=== PATIENT | male | born 1990 | race Caucasian/White ===

== ENCOUNTER 2017-07-07 14:14 | Emergency (ER) | payer OTHER ==
[2017-07-07 14:22] VITALS: BP 113/73; PULSE 98; RESP 20; TEMP 98.1
--- NOTE | 2017-07-07 14:23 | ED ---
Psych HPI - General Stated Complaint: congestion Time Seen by Provider: 07/07/17 14:18 Source: patient, RN notes reviewed Mode of arrival: ambulatory Limitations: no limitations - History of Present Illness Initial Comments: 26-year-old male presents emergency Department chief complaint URI symptoms for 3 days. 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 Patient states he is a daily smoker. He has noticed some wheezing and shortness of breath. Patient has a fever or chills. States he has a productive cough and some nasal congestion. He's tried [id number] Mucinex DayQuil and tried some old antibiotics that he had with no relief. Patient states he does have sore throat which is improved at this time. Denies any ear pain pressure. There is a headache or dizziness. - Related Data Home Medications Medication Instructions Recorded Confirmed Cyclobenzaprine [Flexeril] 10 mg PO TID PRN 11/17/15 07/08/16 Dicyclomine [Bentyl] 20 mg PO QID PRN 11/17/15 07/08/16 Ergocalciferol (Vitamin D2) 50,000 unit PO Q30D 07/08/16 07/08/16 [Drisdol] Omeprazole 20 mg PO DAILY 07/08/16 07/08/16 Zolpidem [Ambien] 5 mg PO HS 07/08/16 07/08/16 Previous Rx's Medication Instructions Recorded Hydrocodone/Acetaminophen [[place] 1 tab PO Q6HR PRN #20 tab 07/08/16 5-325] Sulfamethox-Tmp 800-160Mg [Bactrim 2 each PO Q12HR #40 tab 07/08/16 Ds] Albuterol Sulfate [Proair Hfa] 1 - 2 puff INHALATION Q4HR PRN #1 07/07/17 inhaler methylPREDNISolone [Medrol Dose 4 mg PO DIRECTED #1 pack 07/07/17 Pack] Allergies Allergy/AdvReac Type Severity Reaction Status Date / Time No Known Allergies Allergy Verified 07/07/17 14:22 Review of Systems ROS Statement: Those systems with pertinent positive or pertinent negative responses have been documented in the HPI. ROS Other: All systems not noted in ROS Statement are negative. Past Medical History Past Medical History: No Reported History Additional Past Medical History / Comment(s): Back pain History of Any Multi-Drug Resistant Organisms: None Reported Past Surgical History: No Surgical Hx Reported Past Psychological History: No Psychological Hx Reported Smoking Status: Former smoker Past Alcohol Use History: Occasional Past Drug Use History: Marijuana General Exam General appearance: alert, in no apparent distress Head exam: Present: atraumatic, normocephalic, normal inspection Eye exam: Present: normal appearance, PERRL, EOMI. Absent: scleral icterus, conjunctival injection, periorbital swelling ENT exam: Present: mucous membranes moist, TM's normal bilaterally, normal external ear exam. Absent: normal oropharynx (Mild postnasal drainage) Neck exam: Present: normal inspection, full ROM. Absent: tenderness, meningismus, lymphadenopathy Respiratory exam: Present: wheezes (Bilateral). Absent: normal lung sounds bilaterally, respiratory distress, rales, rhonchi, stridor Cardiovascular Exam: Present: regular rate, normal rhythm, normal heart sounds. Absent: systolic murmur, diastolic murmur, rubs, gallop, clicks GI/Abdominal exam: Present: soft, normal bowel sounds. Absent: distended, tenderness, guarding, rebound, rigid Neurological exam: Present: alert Skin exam: Present: warm, dry, intact, normal color. Absent: rash Course Vital Signs 07/07/17 14:19 Temperature 98.1 F Pulse Rate 98 Respiratory 20 Rate Blood Pressure 113/73 O2 Sat by Pulse 97 Oximetry Medical Decision Making - Medical Decision Making 26-year-old male presented for URI symptoms. Patient does have slight wheezing most likely related to his tobacco use. Patient may have some underlying acute bronchitis. Patient was started on Medrol Dosepak, inhaler. Patient will be discharged advised to quit smoking counseled in detail greater than 3 minutes. Disposition Clinical Impression: Upper respiratory infection, Acute bronchitis Disposition: HOME SELF-CARE Condition: Stable Instructions: Upper Respiratory Infection (ED) Additional Instructions: Please return to the Emergency Department if symptoms worsen or any other concerns. Prescriptions: Albuterol Sulfate [Proair Hfa] 1 - 2 puff INHALATION Q4HR PRN #1 inhaler PRN Reason: difficulty in breathing methylPREDNISolone [Medrol Dose Pack] 4 mg PO DIRECTED #1 pack Referrals: Lane Campos MD [Primary Care Provider] - 1-2 days Time of Disposition: 14:49
--- NOTE | 2017-07-07 14:46 | XR ---
EXAMINATION TYPE: XR chest 2V DATE OF EXAM: 07/07/2017 COMPARISON: Prior chest x-ray 12/31/2014 HISTORY: Cough TECHNIQUE: Frontal and lateral views of the chest are obtained. FINDINGS: There is no focal air space opacity, pleural effusion, or pneumothorax seen. The cardiac silhouette size is within normal limits. The osseous structures are intact. IMPRESSION: No acute cardiopulmonary process.
== END 2017-07-07 14:58 | disposition home or self-care (01) ==
LOC: EC 14:14
DX: J06.9 Acute upper respiratory infection, unspecified (principal); J20.9 Acute bronchitis, unspecified; Z87.891 Personal history of nicotine dependence; Z79.899 Other long term (current) drug therapy
CPT/HCPCS: 71020; 99283

== ENCOUNTER 2017-10-30 07:26 | Emergency (ER) | payer OTHER ==
[2017-10-30 07:29] VITALS: BP 121/76; PULSE 77; RESP 20; TEMP 98.2
--- NOTE | 2017-10-30 08:22 | ED ---
General Adult HPI - General Chief complaint: Extremity Problem,Nontraumatic Stated complaint: Shoulder pain Time Seen by Provider: 10/30/17 07:42 Source: patient, RN notes reviewed, old records reviewed Mode of arrival: ambulatory Limitations: no limitations - History of Present Illness Initial comments: This is a 27-year-old male the ER for evaluation of left shoulder pain. Patient has no prior medical history takes no medications. Patient has no injuries. Patient states he said generalized body aches and symptoms of the flu GI flu with episode nausea and diarrhea as of recent is shoulder pain is persistent. Again patient denies any injury has full range of motion. Denies any recent fevers. No cough or congestion. Again patient denies any trauma - Related Data Home Medications Medication Instructions Recorded Confirmed Cyclobenzaprine [Flexeril] 10 mg PO TID PRN 11/17/15 07/08/16 Dicyclomine [Bentyl] 20 mg PO QID PRN 11/17/15 07/08/16 Ergocalciferol (Vitamin D2) 50,000 unit PO Q30D 07/08/16 07/08/16 [Drisdol] Omeprazole 20 mg PO DAILY 07/08/16 07/08/16 Zolpidem [Ambien] 5 mg PO HS 07/08/16 07/08/16 Previous Rx's Medication Instructions Recorded Hydrocodone/Acetaminophen [[place] 1 tab PO Q6HR PRN #20 tab 07/08/16 5-325] Sulfamethox-Tmp 800-160Mg [Bactrim 2 each PO Q12HR #40 tab 07/08/16 Ds] Albuterol Sulfate [Proair Hfa] 1 - 2 puff INHALATION Q4HR PRN #1 07/07/17 inhaler methylPREDNISolone [Medrol Dose 4 mg PO DIRECTED #1 pack 07/07/17 Pack] Allergies Allergy/AdvReac Type Severity Reaction Status Date / Time No Known Allergies Allergy Verified 10/30/17 07:30 Review of Systems ROS Statement: Those systems with pertinent positive or pertinent negative responses have been documented in the HPI. ROS Other: All systems not noted in ROS Statement are negative. Past Medical History Past Medical History: No Reported History Additional Past Medical History / Comment(s): Back pain History of Any Multi-Drug Resistant Organisms: None Reported Past Surgical History: No Surgical Hx Reported Past Psychological History: No Psychological Hx Reported Smoking Status: Former smoker Past Alcohol Use History: Occasional Past Drug Use History: Marijuana General Exam - General Exam Comments Initial Comments: Mild tenderness posterior scapula Limitations: no limitations General appearance: alert, in no apparent distress Head exam: Present: atraumatic, normocephalic, normal inspection Eye exam: Present: normal appearance, PERRL, EOMI. Absent: scleral icterus, conjunctival injection, periorbital swelling ENT exam: Present: normal exam, mucous membranes moist Neck exam: Present: normal inspection. Absent: tenderness, meningismus, lymphadenopathy Respiratory exam: Present: normal lung sounds bilaterally. Absent: respiratory distress, wheezes, rales, rhonchi, stridor Cardiovascular Exam: Present: regular rate, normal rhythm, normal heart sounds. Absent: systolic murmur, diastolic murmur, rubs, gallop, clicks GI/Abdominal exam: Present: soft, normal bowel sounds. Absent: distended, tenderness, guarding, rebound, rigid Extremities exam: Present: normal inspection, full ROM, normal capillary refill. Absent: tenderness, pedal edema, joint swelling, calf tenderness Back exam: Present: normal inspection Neurological exam: Present: alert, oriented X3, CN II-XII intact Psychiatric exam: Present: normal affect, normal mood Skin exam: Present: warm, dry, intact, normal color. Absent: rash Course Vital Signs 10/30/17 07:28 Temperature 98.2 F Pulse Rate 77 Respiratory 20 Rate Blood Pressure 121/76 O2 Sat by Pulse 98 Oximetry Medical Decision Making - Medical Decision Making 27 female ER for evaluation of left shoulder pain, will be placed on anti- inflammatories, encouraged rest, x-rays negative - Radiology Data Radiology results: report reviewed (Chest x-ray x-ray left shoulder negative for acute disease), image reviewed Disposition Clinical Impression: Left shoulder strain Disposition: HOME SELF-CARE Condition: Good Instructions: Shoulder Sprain (ED) Referrals: Lane Campos MD [Primary Care Provider] - 1-2 days
--- NOTE | 2017-10-30 08:26 | XR ---
EXAMINATION TYPE: XR shoulder complete LT DATE OF EXAM: 10/30/2017 COMPARISON: NONE HISTORY: Pain TECHNIQUE: 3 views FINDINGS: I see no fracture nor dislocation. Joint spaces are normal. There are no pathologic calcifi cations. IMPRESSION: Negative left shoulder exam
--- NOTE | 2017-10-30 08:27 | XR ---
EXAMINATION TYPE: XR chest 1V DATE OF EXAM: 10/30/2017 COMPARISON: 07/07/2017 HISTORY: Pain TECHNIQUE: Single frontal view of the chest is obtained. FINDINGS: Heart and mediastinum are normal. Lungs are clear. Diaphragm is normal. Bony thorax appear s normal. IMPRESSION: Normal chest. No change.
== END 2017-10-30 08:35 | disposition home or self-care (01) ==
LOC: EC 07:26
DX: S46.912A Strain of unspecified muscle, fascia and tendon at shoulder and upper arm level, left arm, initial encounter (principal); R11.0 Nausea; R19.7 Diarrhea, unspecified; Z87.891 Personal history of nicotine dependence; Z79.899 Other long term (current) drug therapy
CPT/HCPCS: 71010; 99284

== ENCOUNTER 2018-03-27 12:38 | Emergency (ER) | payer OTHER ==
--- NOTE | 2018-03-27 13:28 | XR ---
EXAMINATION TYPE: XR ankle complete RT DATE OF EXAM: 03/27/2018 COMPARISON: NONE HISTORY: Pain TECHNIQUE: Three-view right ankle FINDINGS: No acute fractures are evident. Joint spaces preserved. Ankle mortise is intact. Soft tissu es are unremarkable. Calcaneus appears normal. Follow-up study can be performed 7-10 days from acute trauma for continued pain. IMPRESSION: 1. Normal three-view right ankle.
--- NOTE | 2018-03-27 13:55 | ED ---
General Adult HPI - General Chief complaint: Extremity Injury, Lower Stated complaint: Ankle Pain Time Seen by Provider: 03/27/18 12:59 Source: patient, RN notes reviewed Mode of arrival: wheelchair Limitations: no limitations - History of Present Illness Initial comments: 27-year-old male presents to the emergency determine for a chief complaint of right ankle pain 2 days. Patient states that yesterday he jumped off his porch onto grass when playing with his children and injured his right ankle. Patient states he believes he landed on it wrong. Patient denies pain in the rest of the foot. Patient denies pain in the knee or hip. Patient did not fall or hit his head. Patient has no other complaints at this time including shortness of breath, chest pain, abdominal pain, nausea or vomiting, headache, or visual changes. - Related Data Home Medications Medication Instructions Recorded Confirmed Cyclobenzaprine [Flexeril] 10 mg PO TID PRN 11/17/15 03/27/18 Dicyclomine [Bentyl] 20 mg PO QID PRN 11/17/15 03/27/18 Ergocalciferol (Vitamin D2) 50,000 unit PO Q30D 07/08/16 03/27/18 [Drisdol] Omeprazole 20 mg PO DAILY 07/08/16 03/27/18 Zolpidem [Ambien] 5 mg PO HS 07/08/16 03/27/18 Previous Rx's Medication Instructions Recorded Hydrocodone/Acetaminophen [[place] 1 tab PO Q6HR PRN #20 tab 07/08/16 5-325] Sulfamethox-Tmp 800-160Mg [Bactrim 2 each PO Q12HR #40 tab 07/08/16 Ds] Albuterol Sulfate [Proair Hfa] 1 - 2 puff INHALATION Q4HR PRN #1 07/07/17 inhaler methylPREDNISolone [Medrol Dose 4 mg PO DIRECTED #1 pack 07/07/17 Pack] Ibuprofen [Motrin] 600 mg PO Q8HR PRN #60 tab 10/30/17 Ibuprofen [Motrin] 600 mg PO Q8HR PRN #20 tab 03/27/18 Allergies Allergy/AdvReac Type Severity Reaction Status Date / Time No Known Allergies Allergy Verified 03/27/18 12:46 Review of Systems ROS Statement: Those systems with pertinent positive or pertinent negative responses have been documented in the HPI. ROS Other: All systems not noted in ROS Statement are negative. Past Medical History Past Medical History: No Reported History Additional Past Medical History / Comment(s): Back pain History of Any Multi-Drug Resistant Organisms: None Reported Past Surgical History: No Surgical Hx Reported Past Psychological History: No Psychological Hx Reported Smoking Status: Current every day smoker Past Alcohol Use History: Occasional Past Drug Use History: Marijuana General Exam Limitations: no limitations General appearance: alert, in no apparent distress Head exam: Present: atraumatic, normocephalic, normal inspection Eye exam: Present: normal appearance, PERRL, EOMI. Absent: scleral icterus, conjunctival injection, periorbital swelling Neck exam: Present: normal inspection. Absent: tenderness, meningismus, lymphadenopathy Respiratory exam: Present: normal lung sounds bilaterally Cardiovascular Exam: Present: regular rate, normal rhythm, normal heart sounds. Absent: systolic murmur, diastolic murmur, rubs, gallop, clicks Extremities exam: Present: tenderness (Tenderness to the anterior aspect of the right ankle. No tenderness on the medial or lateral malleoli. No tenderness in the foot including the fifth metatarsal and navicular. No tenderness in the tib-fib or knee.), normal capillary refill (Refill less than 2 seconds and pedal pulse 2+.), joint swelling (There is mild right ankle swelling. No ecchymosis noted. No increased warmth.), other (Sensation intact in the right lower extremity.). Absent: full ROM (Patient has some limited flexion and extension of the right ankle joint.), calf tenderness (No tenderness in the calf. No redness, swelling, or increased warmth in the right calf.) Back exam: Present: normal inspection, full ROM. Absent: tenderness Course Vital Signs 03/27/18 03/27/18 12:44 14:11 Temperature 97.8 F 97.9 F Pulse Rate 116 H 98 Respiratory 18 16 Rate Blood Pressure 129/71 132/70 O2 Sat by Pulse 97 98 Oximetry Medical Decision Making - Medical Decision Making 27-year-old male presents to the emergency department for a chief complaint of right ankle pain 2 days. Patient jumped off the porch onto a grassy surface with his children and injured his right ankle. Patient states he landed on it wrong. On exam there is mild swelling. No ecchymosis. Patient has some limited range of motion but is able to flex and extend the right ankle. Neurovascular intact. Tenderness to the anterior ankle. No tenderness to the medial or lateral malleoli or the rest of the foot or right leg. X-ray of the right ankle shows no acute fractures or dislocations. Joint spaces are preserved and ankle mortise is intact. Calcaneus appears normal. Patient likely has a sprain of the ankle. Patient is given an Aircast. Patient will rest, ice, and elevate the right ankle. He will take Motrin and Tylenol for pain. He was given a prescription for Motrin. He will return to the emergency department if he has any worsening symptoms. Otherwise he will follow-up with primary care in 1-2 days. Disposition Clinical Impression: Ankle pain Disposition: HOME SELF-CARE Condition: Good Instructions: Ankle Sprain (ED), RICE Therapy (ED) Additional Instructions: Please take Motrin and Tylenol for pain. Please use brace as necessary. Use crutches as necessary as well. Follow-up with primary care provider in one to 2 days. Return to the emergency department if you've any worsening symptoms. Prescriptions: Ibuprofen [Motrin] 600 mg PO Q8HR PRN #20 tab PRN Reason: Pain Is patient prescribed a controlled substance at d/c from ED?: No Referrals: Lane Campos MD [Primary Care Provider] - 1-2 days Time of Disposition: 13:53
[2018-03-27 14:12] VITALS: BP 132/70; PULSE 98; RESP 16; TEMP 97.9
== END 2018-03-27 14:11 | disposition home or self-care (01) ==
LOC: EC 12:38
DX: M25.571 Pain in right ankle and joints of right foot (principal); F17.200 Nicotine dependence, unspecified, uncomplicated; Z79.899 Other long term (current) drug therapy
CPT/HCPCS: 99283

== ENCOUNTER 2018-04-13 13:39 | Emergency (ER) | payer OTHER ==
[2018-04-13 13:53] VITALS: RESP 18; TEMP 98.5
--- NOTE | 2018-04-13 14:50 | ED ---
Skin/Abscess/FB HPI - General Chief complaint: Skin/Abscess/Foreign Body Stated complaint: cyst on tailbone Source: patient Mode of arrival: ambulatory Limitations: no limitations - History of Present Illness Initial comments: Chief complaint: 27-year-old male with past medical history of GERD and pilonidal cyst/abscess presents with gluteal cleft pain 4 days. History of present illness: A 27-year-old male with past medical history of GERD presents with gluteal cleft pain 4 days. Patient has had pilonidal cyst/abscess approximately 1 year ago. He was scheduled for an outpatient appointment with a surgeon however lost his insurance. Over the past for this patient has had worsening gluteal cleft pain. She tried taking some of his ciprofloxacin at home without any improvement of his symptoms. He consumers department given the progressive worsening of his pain symptoms. Patient denies any constitutional symptoms. Past Medical History: Pilonidal cyst/abscess, GERD Surgical History: [Reviewed, noncontributory] Social History: [Reviewed, noncontributory] Family history:[Reviewed, noncontributory] 14 point ROS was reviewed with patient and found to be negative Vital signs on arrival: Vital signs upon arrival shows heart rate of 134, respiratory signs within acceptable limits Physical examination: General: Alert and oriented 4, acute distress secondary to pain HEENT: Normocephalic atraumatic, extraocular muscles intact, pupils equal round reactive to light and accommodation Cardiovascular: Heart is regular rate and rhythm, no murmurs rubs or gallops Chest: Lungs clear to auscultation bilaterally, no tenderness to palpation of the chest wall Abdomen: Nontender, nondistended, normoactive bowel sounds Musculoskeletal: No peripheral edema, DP pulses and radial pulses 2+ bilaterally Neurologic: Cranial nerves II-12 intact, no focal neurologic deficits, no ataxia Skin: 2 x 2 centimeters area of induration over the gluteal cleft, positive fluctuant mass palpated. ED course/medical decision-making: This 27-year-old male past medical history pilonidal cyst/abscess presents with gluteal cleft pain. Clinical presentation consistent with pilonidal cyst. Vital signs upon arrival shows tachycardia 134. Plan of care bedside ultrasound was performed showing large fluid collection subcutaneously. Bedside I&D was performed. There was expression of approximately 6 mL of purulent fluid. Wound was bluntly dissected and packed using 1 inch plain gauze. He tolerated the procedure well after infiltration with IV analgesics using 1% lidocaine. Approximately 5 mL of lidocaine was injected for analgesia. 15 blade was used to incise the subcutaneous surface to allow packing. Patient is given prescription for Bactrim double strength and Keflex. He is advised to follow up with general surgeon in 2 days for reevaluation of wound. Repeat vital signs shows improvement of tachycardia. Patient is understandable and agreeable to plan. Carloser return to emergency Department with any worsening symptoms including worsening pain and constitutional symptoms of fever, chills or night sweats. Patient understands that he needs surgery intervention to prevent any further recurrences. At time of discharge patient's pain was controlled. Final impression: 1. Pilonidal abscess Plan: Discharge with instructions to follow up with general surgeon for outpatient management of pilonidal abscess, by mouth Keflex, by mouth Bactrim double strength Disposition: Discharged to home - Related Data Home Medications Medication Instructions Recorded Confirmed Dicyclomine [Bentyl] 20 mg PO QID PRN 11/17/15 04/13/18 Ergocalciferol (Vitamin D2) 50,000 unit PO Q30D 07/08/16 04/13/18 [Drisdol] Omeprazole 20 mg PO HS 07/08/16 04/13/18 Cipro Unknown Dose 1 tab PO Q12H 04/13/18 04/13/18 Ibuprofen [Motrin] 600 - 800 mg PO Q8HR PRN 04/13/18 04/13/18 Allergies Allergy/AdvReac Type Severity Reaction Status Date / Time No Known Allergies Allergy Verified 04/13/18 14:10 Review of Systems ROS Statement: Those systems with pertinent positive or pertinent negative responses have been documented in the HPI. ROS Other: All systems not noted in ROS Statement are negative. Past Medical History Past Medical History: No Reported History Additional Past Medical History / Comment(s): Back pain History of Any Multi-Drug Resistant Organisms: None Reported Past Surgical History: No Surgical Hx Reported Past Psychological History: No Psychological Hx Reported Smoking Status: Current every day smoker Past Alcohol Use History: Occasional Past Drug Use History: Marijuana General Exam - General Exam Comments Initial Comments: Vital signs on arrival: Vital signs upon arrival shows heart rate of 134, respiratory signs within acceptable limits Physical examination: General: Alert and oriented 4, acute distress secondary to pain HEENT: Normocephalic atraumatic, extraocular muscles intact, pupils equal round reactive to light and accommodation Cardiovascular: Heart is regular rate and rhythm, no murmurs rubs or gallops Chest: Lungs clear to auscultation bilaterally, no tenderness to palpation of the chest wall Abdomen: Nontender, nondistended, normoactive bowel sounds Musculoskeletal: No peripheral edema, DP pulses and radial pulses 2+ bilaterally Neurologic: Cranial nerves II-12 intact, no focal neurologic deficits, no ataxia Skin: 2 x 2 centimeters area of induration over the gluteal cleft, positive fluctuant mass palpated. Limitations: no limitations Course Vital Signs 04/13/18 04/13/18 13:50 14:58 Temperature 98.5 F Pulse Rate 134 H 97 Respiratory 18 18 Rate Blood Pressure 113/83 119/68 O2 Sat by Pulse 97 100 Oximetry Medical Decision Making - Medical Decision Making ED course/medical decision-making: This 27-year-old male past medical history pilonidal cyst/abscess presents with gluteal cleft pain. Clinical presentation consistent with pilonidal cyst. Vital signs upon arrival shows tachycardia 134. Plan of care bedside ultrasound was performed showing large fluid collection subcutaneously. Bedside I&D was performed. There was expression of approximately 6 mL of purulent fluid. Wound was bluntly dissected and packed using 1 inch plain gauze. He tolerated the procedure well after infiltration with IV analgesics using 1% lidocaine. Approximately 5 mL of lidocaine was injected for analgesia. 15 blade was used to incise the subcutaneous surface to allow packing. Patient is given prescription for Bactrim double strength and Keflex. He is advised to follow up with general surgeon in 2 days for reevaluation of wound. Repeat vital signs shows improvement of tachycardia. Patient is understandable and agreeable to plan. Carloser return to emergency Department with any worsening symptoms including worsening pain and constitutional symptoms of fever, chills or night sweats. Patient understands that he needs surgery intervention to prevent any further recurrences. At time of discharge patient's pain was controlled. Final impression: 1. Pilonidal abscess Plan: Discharge with instructions to follow up with general surgeon for outpatient management of pilonidal abscess, by mouth Keflex, by mouth Bactrim double strength Disposition: Discharged to home Disposition Clinical Impression: Pilonidal abscess Disposition: HOME SELF-CARE Condition: Stable Is patient prescribed a controlled substance at d/c from ED?: No Referrals: Loli Love DO [Doctor of Osteopathic Medicine] - 1-2 days Time of Disposition: 15:05
[2018-04-13 14:59] VITALS: BP 119/68; PULSE 97
--- NOTE | 2018-04-13 15:19 | ED ---
Disposition Clinical Impression: Pilonidal abscess Disposition: HOME SELF-CARE Condition: Stable Prescriptions: Cephalexin [Keflex] 500 mg PO Q6HR 7 Days #28 cap Ibuprofen [Motrin] 600 mg PO Q6HR PRN #24 tab PRN Reason: Pain Sulfamethox-Tmp 800-160Mg [Bactrim DS 800-160 mg] 1 tab PO Q12HR 7 Days #14 tab Is patient prescribed a controlled substance at d/c from ED?: No Referrals: Loli Love DO [Doctor of Osteopathic Medicine] - 1-2 days
== END 2018-04-13 15:43 | disposition home or self-care (01) ==
LOC: EC 13:39
DX: L05.01 Pilonidal cyst with abscess (principal); K21.9 Gastro-esophageal reflux disease without esophagitis; F17.200 Nicotine dependence, unspecified, uncomplicated; Z79.899 Other long term (current) drug therapy
CPT/HCPCS: 10081; 99283

== ENCOUNTER 2018-07-27 00:07 | Emergency (ER) | payer OTHER ==
[2018-07-27] MEDS ORDERED: ACET/COD 300 MG/30 MG STARTER PACK 6 TAB BTL PO STA (00:55)
[2018-07-27] MEDS ORDERED: KETOROLAC 30 MG/ML 1 ML VIAL IM STA (00:55)
[2018-07-27] MEDS ORDERED: ORPHENADRINE 30 MG/ML 2 ML VIAL IM STA (00:55)
[2018-07-27] MEDS ORDERED: methylPREDNISolone SOD SUCCI 125 MG/2 ML VIAL IM ONE (00:55)
--- NOTE | 2018-07-27 00:55 | ED ---
Back Pain HPI - General Source: patient Limitations: no limitations <Anna Novak - Last Filed: 07/27/18 00:57> <Isabel Banks - Last Filed: 07/27/18 07:06> - General Chief Complaint: Back Pain/Injury Stated Complaint: back pain Time Seen by Provider: 07/27/18 00:25 - History of Present Illness Initial Comments: 27-year-old male patient presents to the emergency department today for complaints of increased low back pain with radiation down the left leg. Patient states approximately 15 minutes prior to arrival he was bending down to moss picker some papers off the floor when he felt his "sciatic nerve" pinched. Patient states that he has had pain since then. Patient states that the pain radiates down the back of his left leg to the level of the knee. Patient denies any numbness or tingling to his lower extremities. Denies any loss of bowel or bladder control. Denies any saddle anesthesia. Patient denies taking any medications for his symptoms. Patient states that he does have ibuprofen and Flexeril at home. Patient states he has had sciatica before and this feels exactly the same. Patient denies any recent rash, fever, chills, shortness breath, chest pain, abdominal pain, nausea, vomiting, diarrhea, constipation, dizziness, weakness, hematuria, dysuria, urinary urgency, urinary frequency, headache, visual changes, or any other complaints. (Anna Novak) - Related Data Home Medications Medication Instructions Recorded Confirmed Dicyclomine [Bentyl] 20 mg PO QID PRN 11/17/15 07/27/18 Omeprazole 20 mg PO HS 07/08/16 07/27/18 Cyclobenzaprine [Flexeril] 10 mg PO HS 07/27/18 07/27/18 Previous Rx's Medication Instructions Recorded Ibuprofen [Motrin] 600 mg PO Q6HR PRN #24 tab 04/13/18 predniSONE 50 mg PO DAILY #5 tablet 07/27/18 Allergies Allergy/AdvReac Type Severity Reaction Status Date / Time No Known Allergies Allergy Verified 04/13/18 14:10 Review of Systems ROS Other: All systems not noted in ROS Statement are negative. <Anna Novak - Last Filed: 07/27/18 00:57> ROS Other: All systems not noted in ROS Statement are negative. <Isabel Banks P - Last Filed: 07/27/18 07:06> ROS Statement: Those systems with pertinent positive or pertinent negative responses have been documented in the HPI. Past Medical History Past Medical History: No Reported History Additional Past Medical History / Comment(s): Back pain History of Any Multi-Drug Resistant Organisms: None Reported Past Surgical History: No Surgical Hx Reported Past Psychological History: Anxiety Smoking Status: Current every day smoker Past Alcohol Use History: None Reported Past Drug Use History: None Reported, Marijuana <Anna Novak M - Last Filed: 07/27/18 00:57> General Exam Limitations: no limitations General appearance: alert, in no apparent distress, other (This is a well- developed, well-nourished adult male patient in no acute distress. Vital signs upon presentation are temperature 98.2F, pulse 85, respirations 18, blood pressure 127/82, pulse ox 97% on room air.) Eye exam: Present: normal appearance, PERRL, EOMI. Absent: scleral icterus, conjunctival injection, periorbital swelling ENT exam: Present: normal exam, normal oropharynx, mucous membranes moist Respiratory exam: Present: normal lung sounds bilaterally. Absent: respiratory distress, wheezes, rales, rhonchi, stridor Cardiovascular Exam: Present: regular rate, normal rhythm, normal heart sounds. Absent: systolic murmur, diastolic murmur, rubs, gallop, clicks GI/Abdominal exam: Present: soft, normal bowel sounds. Absent: distended, tenderness, guarding, rebound, rigid Extremities exam: Present: normal inspection, full ROM, normal capillary refill , other (Skin to the lower extremities is pink, warm, and dry. Cap refills less than 3 seconds. Pedal and posttibial pulses are 2+ and equal bilaterally.) . Absent: tenderness, pedal edema, joint swelling, calf tenderness Back exam: Present: normal inspection Neurological exam: Present: alert, oriented X3, CN II-XII intact, other ( Strength in all 4 extremities is 5/5.) Psychiatric exam: Present: normal affect, normal mood Skin exam: Present: warm, dry, intact, normal color. Absent: rash <Anna Novak M - Last Filed: 07/27/18 00:57> Vital Signs 07/27/18 07/27/18 00:09 01:22 Temperature 98.0 F 97.0 F L Pulse Rate 85 72 Respiratory 18 16 Rate Blood Pressure 127/82 123/74 O2 Sat by Pulse 97 97 Oximetry Medical Decision Making <Anna Novak - Last Filed: 07/27/18 00:57> <Isabel Banks - Last Filed: 07/27/18 07:06> - Medical Decision Making 27-year-old male patient presents to the emergency department today for evaluation of left lower back pain with radiation down the left leg. Symptoms and physical exam finds are consistent with sciatica. Patient will be treated with IM anti-inflammatory, muscle relaxer, and steroids. He'll be given a prescription for steroids and instructed to take his home ibuprofen and Flexeril for symptom relief. He is instructed to apply warm moist heat to the low back in to perform gentle range of motion exercises. He is instructed to follow-up with his primary care physician for recheck in 1-2 days. Return parameters were discussed in detail. He verbalizes understanding and agrees with this plan. (Anna Novak) I was available for consultation in the emergency department. The history and physical exam were done by the midlevel provider. I was consulted for this patient's care. I reviewed the case with the midlevel provider and based on their presentation of the patient, I agree with the assessment, medical decision making and plan of care as documented. (Isabel Banks) Disposition Is patient prescribed a controlled substance at d/c from ED?: No Time of Disposition: 00:55 <Anna Novak - Last Filed: 07/27/18 00:57> <Isabel Banks - Last Filed: 07/27/18 07:06> Clinical Impression: Sciatica Disposition: HOME SELF-CARE Condition: Good Instructions: Sciatica (ED), Acute Low Back Pain (ED) Additional Instructions: Apply warm moist heat to the low back 20 minutes at a time at least 4 times daily. Take medications as directed. Follow-up through primary care physician for recheck in 1-2 days. Return here immediately for any new, worsening, or concerning symptoms per Prescriptions: predniSONE 50 mg PO DAILY #5 tablet Referrals: Lane Campos MD [Primary Care Provider] - 1-2 days
[2018-07-27 01:27] VITALS: BP 123/74; PULSE 72; RESP 16; TEMP 97
== END 2018-07-27 01:22 | disposition home or self-care (01) ==
LOC: EC 00:07
DX: M54.42 Lumbago with sciatica, left side (principal); F17.200 Nicotine dependence, unspecified, uncomplicated; Z79.899 Other long term (current) drug therapy
CPT/HCPCS: 96372; 99283

== ENCOUNTER 2019-02-13 15:22 | Emergency (ER) | payer OTHER ==
[2019-02-13 15:25] VITALS: BP 127/85; PULSE 80; RESP 18; TEMP 98
[2019-02-13] MEDS ORDERED: KETOROLAC 60 MG/2 ML VIAL IM STA (15:31)
[2019-02-13] MEDS ORDERED: CYCLOBENZAPRINE 10MG STARTER 3 TAB BTL PO STA (15:31)
--- NOTE | 2019-02-13 15:33 | ED ---
Back Pain HPI - General Chief Complaint: Back Pain/Injury Stated Complaint: Back Pain Source: patient Limitations: no limitations - History of Present Illness Initial Comments: 28-year-old male presenting today for chief complaint of low back pain with left leg sciatica. Patient states he has chronic low back pain and has had on-and-off sciatica. Patient states he was stepping out of the shower when he lifted his left leg onto the edge of the tub and placed on the ground he noted pain in his back as well as a sharp shooting pain down his left leg. Patient states is identical to be sided sciatica in the past. He states it usually lasts for 4 days. Patient states his ibuprofen 600 mg at home did not take that prior to arrival. Patient states that he has no loss of bowel bladder control no urinary retention no loss sensation of the lower extremities or weakness of the lower extremities. Patient states pain increases with bending forward. Patient denies IV drug use history of cancer fever chills night sweats fall, or direct trauma to the back, no hematuria dysuria, frequency. Upon arrival patient is ambulatory appearing well milliseconds acute distress. - Related Data Home Medications Medication Instructions Recorded Confirmed Dicyclomine [Bentyl] 20 mg PO QID PRN 11/17/15 07/27/18 Omeprazole 20 mg PO HS 07/08/16 07/27/18 Cyclobenzaprine [Flexeril] 10 mg PO HS 07/27/18 07/27/18 Previous Rx's Medication Instructions Recorded Ibuprofen [Motrin] 600 mg PO Q6HR PRN #24 tab 04/13/18 predniSONE 50 mg PO DAILY #5 tablet 07/27/18 Cyclobenzaprine [Flexeril] 10 mg PO HS PRN 7 Days #7 tab 02/13/19 Ibuprofen 800 mg PO Q8H PRN 7 Days #21 tablet 02/13/19 Allergies Allergy/AdvReac Type Severity Reaction Status Date / Time No Known Allergies Allergy Verified 02/13/19 15:25 Review of Systems ROS Statement: Those systems with pertinent positive or pertinent negative responses have been documented in the HPI. ROS Other: All systems not noted in ROS Statement are negative. Past Medical History Past Medical History: No Reported History Additional Past Medical History / Comment(s): Back pain History of Any Multi-Drug Resistant Organisms: None Reported Past Surgical History: No Surgical Hx Reported Past Psychological History: Anxiety Smoking Status: Current every day smoker Past Alcohol Use History: None Reported Past Drug Use History: Marijuana General Exam - General Exam Comments Initial Comments: General: The patient is awake and alert, in no distress, and does not appear acutely ill. Eye: Pupils are equal, round and reactive to light, extra-ocular movements are intact. No nystagmus. There is normal conjunctiva bilaterally. No signs of icterus. Ears, nose, mouth and throat: There are moist mucous membranes and no oral lesions. Neck: The neck is supple, there is no tenderness or JVD. Cardiovascular: There is a regular rate and rhythm. No murmur, rub or gallop is appreciated. Respiratory: Lungs are clear to auscultation, respirations are non-labored, breath sounds are equal. No wheezes, stridor, rales, or rhonchi. Gastrointestinal: Soft, non-distended, non-tender abdomen without masses or organomegaly noted. There is no rebound or guarding present. Musculoskeletal: Upon inspection of the thoracic or lumbar spine there is no abnormalities or ecchymosis. Patient has no midline tenderness to palpation of the thoracic or lumbar spine. Patient has significant paravertebral tenderness bilaterally of the lumbar aspect of the spine. Normal ROM, no tenderness of the lower extremities equal and comparison bilaterally. Strength 5/5 of the LE equally comparison bilaterally. Sensation intact of the LE equally comparison bilaterally including the saddle region. Radial pulses equal bilaterally 2+. S LR + left side. Neurological: A&O x 3. CN II-XII intact, There are no obvious motor or sensory deficits. Coordination appears grossly intact. Speech is normal. Skin: Skin is warm and dry and no rashes or lesions are noted. Psychiatric: Cooperative, appropriate mood & affect, normal judgment. Limitations: no limitations Course Vital Signs 02/13/19 15:23 Temperature 98.0 F Pulse Rate 80 Respiratory 18 Rate Blood Pressure 127/85 O2 Sat by Pulse 98 Oximetry Medical Decision Making - Medical Decision Making 28-year-old male presenting today for chief complaint of left-sided low back pain. Patient lifted leg up earlier today and exacerbated his chronic sciatica. Patient has no midline tenderness on exam, paravertebral tenderness bilaterally as well as muscle tension. Patient was given muscle relaxer and Toradol emergency department. Patient be discharged muscle relaxant and ibuprofen 800 mg for symptom relief. Patient has no signs concerning for cauda equina. Patient neurovascularly intact. I discussed the case with him provider Dr. Lacey we feel patient is stable for discharge with outpatient primary care follow-up. Patient is provided work note. Pt was agreeable with plan of care as well as discharge denies questions at this time Disposition Clinical Impression: Low back strain, Acute exacerbation of chronic low back pain Disposition: HOME SELF-CARE Condition: Good Instructions (If sedation given, give patient instructions): Acute Low Back Pain (ED) Additional Instructions: Please use medication as discussed, no drinking alcohol, driving, working or operating machinery under the influence of Flexeril . Please follow-up with family doctor in the next 2 days of symptoms have not improved. Please return to emergency room if the symptoms increase or worsen or for any other concerns. Prescriptions: Cyclobenzaprine [Flexeril] 10 mg PO HS PRN 7 Days #7 tab PRN Reason: Muscle Spasm Ibuprofen 800 mg PO Q8H PRN 7 Days #21 tablet PRN Reason: Pain Is patient prescribed a controlled substance at d/c from ED?: No Referrals: Lane Campos MD [Primary Care Provider] - 1-2 days Time of Disposition: 15:32
== END 2019-02-13 15:53 | disposition home or self-care (01) ==
LOC: EC 15:22
DX: S39.012A Strain of muscle, fascia and tendon of lower back, initial encounter (principal); G89.29 Other chronic pain; F17.200 Nicotine dependence, unspecified, uncomplicated; Z79.899 Other long term (current) drug therapy; X58.XXXA Exposure to other specified factors, initial encounter
CPT/HCPCS: 99283; 96372; J1885

== ENCOUNTER 2019-04-16 13:42 | Emergency (ER) | payer OTHER ==
[2019-04-16 14:02] VITALS: BP 132/98; PULSE 92; RESP 18; TEMP 98.8
--- NOTE | 2019-04-16 14:12 | ED ---
URI HPI - General Stated Complaint: Cough Time Seen by Provider: 04/16/19 13:54 Source: patient, RN notes reviewed Mode of arrival: ambulatory Limitations: no limitations - History of Present Illness Initial Comments: 20-year-old male presents emergency Department chief complaint sore throat, congestion. Patient states he does not feel well. He is a former smoker. Patient had subjective fevers chills. No [id number] medications. Patient denies any sick contacts. Patient denies any chest pain, nausea vomiting diarrhea constipation. - Related Data Home Medications Medication Instructions Recorded Confirmed Dicyclomine [Bentyl] 20 mg PO QID PRN 11/17/15 07/27/18 Omeprazole 20 mg PO HS 07/08/16 07/27/18 Cyclobenzaprine [Flexeril] 10 mg PO HS 07/27/18 07/27/18 Previous Rx's Medication Instructions Recorded Ibuprofen [Motrin] 600 mg PO Q6HR PRN #24 tab 04/13/18 predniSONE 50 mg PO DAILY #5 tablet 07/27/18 Cyclobenzaprine [Flexeril] 10 mg PO HS PRN 7 Days #7 tab 02/13/19 Ibuprofen 800 mg PO Q8H PRN 7 Days #21 tablet 02/13/19 Azithromycin [Zithromax Z-pack] 0 mg PO DIRECTED #1 pack 04/16/19 predniSONE 50 mg PO DAILY #5 tab 04/16/19 Allergies Allergy/AdvReac Type Severity Reaction Status Date / Time No Known Allergies Allergy Verified 04/16/19 13:56 Review of Systems ROS Statement: Those systems with pertinent positive or pertinent negative responses have been documented in the HPI. ROS Other: All systems not noted in ROS Statement are negative. Past Medical History Past Medical History: No Reported History Additional Past Medical History / Comment(s): Back pain History of Any Multi-Drug Resistant Organisms: None Reported Past Surgical History: No Surgical Hx Reported Past Psychological History: Anxiety Smoking Status: Former smoker Past Alcohol Use History: None Reported Past Drug Use History: Marijuana General Exam Limitations: no limitations General appearance: alert, in no apparent distress Head exam: Present: atraumatic, normocephalic, normal inspection Eye exam: Present: normal appearance, PERRL, EOMI. Absent: scleral icterus, conjunctival injection, periorbital swelling ENT exam: Present: mucous membranes moist, TM's normal bilaterally, normal external ear exam. Absent: normal oropharynx (Erythema) Neck exam: Present: normal inspection, full ROM. Absent: tenderness, meningismus, lymphadenopathy Respiratory exam: Present: wheezes. Absent: normal lung sounds bilaterally, respiratory distress, rales, rhonchi, stridor Cardiovascular Exam: Present: regular rate, normal rhythm, normal heart sounds. Absent: systolic murmur, diastolic murmur, rubs, gallop, clicks Course Vital Signs 04/16/19 13:56 Temperature 98.8 F Pulse Rate 92 Respiratory 18 Rate Blood Pressure 132/98 O2 Sat by Pulse 98 Oximetry Medical Decision Making - Medical Decision Making 20-year-old male presented for URI symptoms. Patient's chest x-ray is unremarkable. Patient has acute bronchitis. Patient we discharged return parameters were discussed. Disposition Clinical Impression: Acute bronchitis Disposition: HOME SELF-CARE Condition: Stable Instructions (If sedation given, give patient instructions): Acute Bronchitis (ED) Additional Instructions: Please return to the Emergency Department if symptoms worsen or any other concerns. Prescriptions: predniSONE 50 mg PO DAILY #5 tab Azithromycin [Zithromax Z-pack] 0 mg PO DIRECTED #1 pack Is patient prescribed a controlled substance at d/c from ED?: No Referrals: Lane Campos MD [Primary Care Provider] - 1-2 days Time of Disposition: 14:12
--- NOTE | 2019-04-16 14:14 | XR ---
EXAMINATION TYPE: XR chest 2V DATE OF EXAM: 04/16/2019 COMPARISON: Chest x-ray October 30, 2017 HISTORY: Cough and pain. TECHNIQUE: Frontal and lateral views of the chest are obtained. FINDINGS: There is new patchy right hilar opacity felt to be in the right middle lobe on lateral vie w. Left lung is clear. No pleural effusion or pneumothorax is evident bilaterally. The cardiac silho uette size is within normal limits. The osseous structures are intact. IMPRESSION: New patchy right middle lobe atelectasis and/or infiltrate.
== END 2019-04-16 15:11 | disposition home or self-care (01) ==
LOC: EC 13:42
DX: J20.9 Acute bronchitis, unspecified (principal); Z79.899 Other long term (current) drug therapy; Z87.891 Personal history of nicotine dependence
CPT/HCPCS: 71046; 99283

== ENCOUNTER → 2019-05-05 | Outpatient (CLI) | payer BC, OTHER ==
--- NOTE | 2019-05-06 07:37 | MR ---
EXAMINATION TYPE: MR angio head wo con DATE OF EXAM: 05/05/2019 COMPARISON: NONE HISTORY: Headaches, family hx aneurysm TECHNIQUE: Utilizing 3-D [id number] intracranial MRA of the [place] of [place] was performed. FINDINGS: The vertebrobasilar and carotid systems are patent. Left vertebral artery is dominant. There is a 2 m m nodular area in the region of the anterior communicating artery. IMPRESSION: 1. There is a 2 mm nodular prominence in the region of the anterior communicating artery. Tiny aneury sm suspected. Recommend 6 month to 12 month follow-up to confirm stability.
== END | disposition home or self-care (01) ==
LOC: RADMRIMAIN 19:34
PROVIDERS: ATTEND Family Medicine
DX: I77.89 Other specified disorders of arteries and arterioles (principal); R51 Headache
CPT/HCPCS: 70544

== ENCOUNTER → 2019-05-09 | Outpatient (CLI) | payer OTHER ==
--- NOTE | 2019-05-09 09:41 | US ---
EXAMINATION TYPE: US liver DATE OF EXAM: 05/09/2019 COMPARISON: NONE CLINICAL HISTORY: R74.8 ABnormal LFTS. EXAM MEASUREMENTS: Liver Length: 12.6 cm Gallbladder Wall: 0.1 cm CBD: 0.3 cm Right Kidney: 10.7 x 3.5 x 5.2 cm Pancreas: Tail obscured by overlying bowel gas Liver: Increased attenuation, hypoechoic area measuring 2.3 x 0.8 x 2.0 possible focal fatty sparing Gallbladder: wnl Evidence for sonographic Horne's sign: No CBD: wnl Right Kidney: wnl IMPRESSION: Sonographic findings most commonly relates to hepatic steatosis. Relate with liver functi on test results. There is a geographic area of possible focal fatty sparing for which three-phase CT abdomen could confirm.
== END | disposition home or self-care (01) ==
LOC: RADUSWWP 08:51
PROVIDERS: ATTEND Family Medicine
DX: R74.8 Abnormal levels of other serum enzymes (principal)
CPT/HCPCS: 76705

== ENCOUNTER → 2019-06-16 | Outpatient (CLI) | payer BC, OTHER ==
--- NOTE | 2019-06-16 14:51 | US ---
EXAMINATION TYPE: US thyroid st tissue head/neck DATE OF EXAM: 06/16/2019 COMPARISON: NONE CLINICAL HISTORY: R22.0 SWELLING IN NECK ,SENSATION OF FOREIGN BODY IN NECK. Patient has a feeling of little nodules within area of thyroid GLAND SIZE: Right Lobe: 3.6 x 1.5 x 1.8 cm Overall Parenchyma: homogenous Left Lobe: 3.5 x 1.4 x 1.7 cm Overall Parenchyma: homogeneous Isthmus Thickness: 0.2 cm NODULES RIGHT: # of nodules measured on right: 0 LEFT: # of nodules measured on left: 0 ISTHMUS: # of nodules measured in the isthmus: 0 Bilateral neck scanned, no evidence of abnormal lymphadenopathy. IMPRESSION: Homogeneous thyroid gland without measurable nodule.
== END ==
LOC: RADUSWWP 13:37
PROVIDERS: ATTEND Family Medicine
DX: R09.89 Other specified symptoms and signs involving the circulatory and respiratory systems (principal)
CPT/HCPCS: 76536

== ENCOUNTER 2020-08-12 20:01 | Emergency (ER) | payer BC, OTHER ==
[2020-08-12 20:11] VITALS: BP 151/92; PULSE 77; RESP 18; TEMP 98.1
[2020-08-12] MEDS ORDERED: methylPREDNISolone SOD SUCCI 125 MG/2 ML VIAL IM ONE (20:25)
[2020-08-12] MEDS ORDERED: ORPHENADRINE 30 MG/ML 2 ML VIAL IM STA (20:25)
[2020-08-12] MEDS ORDERED: ACET/COD 300 MG/30 MG STARTER PACK 6 TAB BTL PO STA (20:25)
[2020-08-12] MEDS ORDERED: KETOROLAC 15 MG/ML 1 ML VIAL IM STA (20:25)
--- NOTE | 2020-08-12 20:29 | ED ---
Back Pain HPI - General Chief Complaint: Back Pain/Injury Stated Complaint: Back Pain Time Seen by Provider: 08/12/20 20:16 Source: patient, RN notes reviewed, old records reviewed Limitations: no limitations - History of Present Illness Initial Comments: Patient is a very pleasant 30-year-old male presents emergency department today with lower back pain shooting down the left leg. Symptoms started after he was lifting a dog. 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 Patient states that he has had x-rays which showed no fractures in the past. He states that he has not followed up with orthopedic back specialist. He reports he typically gets relief after IM injections in the ER. Patient states that he's had no chest pain shortness breath, nausea or vomiting or abdominal pain. Denies saddle anesthesias. - Related Data Home Medications Medication Instructions Recorded Confirmed Dicyclomine [Bentyl] 20 mg PO QID PRN 11/17/15 07/27/18 Omeprazole 20 mg PO HS 07/08/16 07/27/18 Cyclobenzaprine [Flexeril] 10 mg PO HS 07/27/18 07/27/18 Previous Rx's Medication Instructions Recorded Ibuprofen [Motrin] 600 mg PO Q6HR PRN #24 tab 04/13/18 predniSONE 50 mg PO DAILY #5 tablet 07/27/18 Cyclobenzaprine [Flexeril] 10 mg PO HS PRN 7 Days #7 tab 02/13/19 Ibuprofen 800 mg PO Q8H PRN 7 Days #21 tablet 02/13/19 Azithromycin [Zithromax Z-pack (6 0 mg PO DIRECTED #1 pack 04/16/19 tabs)] predniSONE 50 mg PO DAILY #5 tab 04/16/19 Cyclobenzaprine [Flexeril] 10 mg PO TID #12 tab 08/12/20 Ibuprofen [Motrin] 600 mg PO Q6HR PRN #20 tab 08/12/20 Allergies Allergy/AdvReac Type Severity Reaction Status Date / Time No Known Allergies Allergy Verified 08/12/20 20:11 Review of Systems ROS Statement: Those systems with pertinent positive or pertinent negative responses have been documented in the HPI. ROS Other: All systems not noted in ROS Statement are negative. Past Medical History Past Medical History: GERD/Reflux Additional Past Medical History / Comment(s): Back pain, IBS History of Any Multi-Drug Resistant Organisms: None Reported Past Surgical History: No Surgical Hx Reported Past Psychological History: Anxiety Smoking Status: Never smoker Past Alcohol Use History: Occasional Past Drug Use History: Marijuana General Exam - General Exam Comments Initial Comments: 30-year-old male. Alert and oriented. No distress. Limitations: no limitations General appearance: alert, in no apparent distress Head exam: Present: atraumatic, normocephalic, normal inspection Eye exam: Present: normal appearance, PERRL, EOMI. Absent: scleral icterus, conjunctival injection, periorbital swelling ENT exam: Present: normal exam, mucous membranes moist Neck exam: Present: normal inspection. Absent: tenderness, meningismus, lymphadenopathy Respiratory exam: Present: normal lung sounds bilaterally. Absent: respiratory distress, wheezes, rales, rhonchi, stridor Cardiovascular Exam: Present: regular rate, normal rhythm, normal heart sounds. Absent: systolic murmur, diastolic murmur, rubs, gallop, clicks GI/Abdominal exam: Present: soft, normal bowel sounds. Absent: distended, tenderness, guarding, rebound, rigid Extremities exam: Present: normal inspection, full ROM, normal capillary refill, other (Patient has lower back tenderness over the left sciatic notch). Absent: tenderness, pedal edema, joint swelling, calf tenderness Back exam: Present: normal inspection Neurological exam: Present: alert, oriented X3, CN II-XII intact Psychiatric exam: Present: normal affect, normal mood Skin exam: Present: warm, dry, intact, normal color. Absent: rash Course Vital Signs 08/12/20 20:07 Temperature 98.1 F Pulse Rate 77 Respiratory 18 Rate Blood Pressure 151/92 O2 Sat by Pulse 97 Oximetry Medical Decision Making - Medical Decision Making 30-year-old male presents with lower back pain after lifting a dog. No fall or trauma. Patient's pain shooting down the left leg. No saddle anesthesias. Patient is given IM pain medications as reports relief. Patient advised follow- up with orthopedic back specialist. He said imaging on his back in the past which showed no fractures. He states that he typically is improved after injections in the ER. Discussed the Patient follow-up with orthopedic back specialist if symptoms continue to persist such as this. Patient understands treatment plan will comply. Disposition Clinical Impression: Back pain of lumbar region with sciatica Disposition: HOME SELF-CARE Condition: Good Instructions (If sedation given, give patient instructions): Acute Low Back Pain (ED) Additional Instructions: Please use medication as discussed. Please follow up with family doctor if symptoms have not improved over the next two days. Please return to the emergency room if your symptoms increase or worsen or for any other concerns. Prescriptions: Cyclobenzaprine [Flexeril] 10 mg PO TID #12 tab Ibuprofen [Motrin] 600 mg PO Q6HR PRN #20 tab PRN Reason: Pain Is patient prescribed a controlled substance at d/c from ED?: No Referrals: Lane Campos MD [Primary Care Provider] - 1-2 days Cooper Luo DO [Doctor of Osteopathic Medicine] - 1-2 days Time of Disposition: 20:46
== END 2020-08-12 21:04 | disposition home or self-care (01) ==
LOC: EC 20:01
DX: M54.40 Lumbago with sciatica, unspecified side (principal); K21.9 Gastro-esophageal reflux disease without esophagitis; Z79.899 Other long term (current) drug therapy
CPT/HCPCS: 99283; 96372 ×3; J2360; J2930; J1885

== ENCOUNTER → 2020-09-23 | Outpatient (CLI) | payer OTHER ==
[2020-09-23 16:13] LABS: Basophils # (A) 0.1 k/uL (0-0.2); Basophils % (A) 2 %; Eosinophils # (A) 0.1 k/uL (0-0.7); Eosinophils % (A) 2 %; HCT 50.6 % (39.0-53.0); HGB 17.7 gm/dL (13.0-17.5); Lymphocytes # (A) 1.7 k/uL (1.0-4.8); Lymphocytes % (A) 27 %; MCH 33.8 pg (25.0-35.0); MCV 96.6 fL (80.0-100.0); Mean Platelet Volume 6.9; Monocytes # (A) 0.5 k/uL (0-1.0); Monocytes % (A) 8 %; Neutrophils # (A) 3.7 k/uL (1.3-7.7); Neutrophils % (A) 59 %; Platelet Count 202 k/uL (150-450); RBC 5.23 m/uL (4.30-5.90); RDW 12.4 % (11.5-15.5); WBC 6.3 k/uL (3.8-10.6)
[2020-09-23 16:38] LABS: INR 0.9 (<1.2); Prothrombin Time 9.8 sec (9.0-12.0)
[2020-09-23 23:32] LABS: Protein, Total 7.2 g/dL (6.2-8.2)
[2020-09-23 23:44] LABS: % Iron Saturation 46.22 (15.00-50.00); Albumin 4.7 g/dL (3.80-4.90); Albumin/Globulin Ratio 1.96 (1.60-3.17); Bilirubin, Conjugated 0.4 mg/dL (0.20-0.40); Bilirubin,Unconjugated 0.7 mg/dL; Globulin 2.4 g/dL (1.6-3.3); Total Bilirubin 1.1 mg/dL (0.2-1.2); Total Protein 7.1 g/dL (6.2-8.2)
[2020-09-24 00:06] LABS: Ferritin 2927.3 ng/mL (22.0-322.0)
[2020-09-24 02:22] LABS: Hepatitis A Antibody IgM Non-Reactive (Non-Reactive); Hepatitis B Core IgM Non-Reactive (Non-Reactive); Hepatitis B Surface Antigen Non-Reactive (Non-Reactive); Hepatitis C IgG Antibody Non-Reactive (Non-Reactive)
[2020-09-24 13:27] LABS: Ceruloplasmin 21.9 mg/dL (20.0-60.0)
== END | disposition home or self-care (01) ==
LOC: LABWHC1 15:01
PROVIDERS: ATTEND Nurse Practitioner
DX: R74.01 Elevation of levels of liver transaminase levels (principal)
CPT/HCPCS: 36415; 80074; 80076; 82390; 82728; 83516; 83540; 83550; 84165; 85025; 85610; 86038

== ENCOUNTER → 2020-10-01 | Outpatient (CLI) | payer OTHER | END | disposition home or self-care (01) | LOC: LABWHC1 14:03 | PROVIDERS: ATTEND Nurse Practitioner | DX: R74.01 Elevation of levels of liver transaminase levels (principal) | CPT/HCPCS: 36415 ==

== ENCOUNTER → 2020-10-02 | Outpatient (CLI) | payer OTHER ==
--- NOTE | 2020-10-02 11:58 | US ---
EXAMINATION TYPE: US liver DATE OF EXAM: 10/02/2020 COMPARISON: Previous exam 05/09/2019 CLINICAL HISTORY: R74.01 Elevated liver enzymes. elevated liver enzymes EXAM MEASUREMENTS: Liver Length: 13.5 cm Gallbladder Wall: 0.2 cm CBD: 0.5 cm Right Kidney: 11.3 x 4.6 x 4.2 cm Pancreas: Obscured by bowel gas Liver: attenuating Gallbladder: no evidence of stones Evidence for sonographic Horne's sign: no CBD: wnl Right Kidney: no evidence of hydronephrosis IMPRESSION: Findings in the liver could be due to underlying hepatocellular disease, hepatic steatosi s, limited exam
== END | disposition home or self-care (01) ==
LOC: RADUSWWP 08:24
PROVIDERS: ATTEND Nurse Practitioner
DX: R74.01 Elevation of levels of liver transaminase levels (principal)
CPT/HCPCS: 76705

== ENCOUNTER 2020-10-20 01:20 | Emergency (ER) | payer OTHER ==
[2020-10-20] MEDS ORDERED: SODIUM CHLORIDE 0.9% 1,000 ML IV ONE (01:24)
[2020-10-20] MEDS ORDERED: LORazepam 2 MG/ML INJ IV STA ×2 (01:24→03:05)
[2020-10-20] MEDS ORDERED: DIPH,PERTUS(ACELL)TETVAC-LF 0.5 ML VIAL IM ONE (01:39)
--- NOTE | 2020-10-20 01:39 | ED ---
Fall HPI - General Stated Complaint: Fall, altered mental status Time Seen by Provider: 10/20/20 01:23 Source: EMS Mode of arrival: EMS Limitations: altered mental status - History of Present Illness Initial Comments: Patient is a 30-year-old man brought in after he had a fall on the stairs. History is from EMS, patient has altered mental status and not able to give any additional history. EMS reports that they were called after the patient had fallen down approximately 6 stairs striking the back of his head. A arrived, they state that the patient was unconscious for 2-3 minutes. When he did become alert he was combative, taking off the cervical collar, attempting to swing at the first responders. The patient was given ketamine 300 mg IM injection at the scene and then brought here for evaluation. MD Complaint: fall -: minutes(s) Fall From: down stairs (#) (6) When Fall Occurred: just prior to arrival Fall Witnessed: yes, by family Place Fall Occurred: home Loss of Consciousness: yes, minute(s) (3) Prolonged Down Time?: no Symptoms Prior to Fall: none Location: head Context: alcohol use - Related Data Home Medications Medication Instructions Recorded Confirmed Dicyclomine [Bentyl] 20 mg PO QID PRN 11/17/15 07/27/18 Omeprazole 20 mg PO HS 07/08/16 07/27/18 Cyclobenzaprine [Flexeril] 10 mg PO HS 07/27/18 07/27/18 Previous Rx's Medication Instructions Recorded Ibuprofen [Motrin] 600 mg PO Q6HR PRN #24 tab 04/13/18 predniSONE 50 mg PO DAILY #5 tablet 07/27/18 Cyclobenzaprine [Flexeril] 10 mg PO HS PRN 7 Days #7 tab 02/13/19 Ibuprofen 800 mg PO Q8H PRN 7 Days #21 tablet 02/13/19 Azithromycin [Zithromax Z-pack (6 0 mg PO DIRECTED #1 pack 04/16/19 tabs)] predniSONE 50 mg PO DAILY #5 tab 04/16/19 Cyclobenzaprine [Flexeril] 10 mg PO TID #12 tab 08/12/20 Ibuprofen [Motrin] 600 mg PO Q6HR PRN #20 tab 08/12/20 Allergies Allergy/AdvReac Type Severity Reaction Status Date / Time No Known Allergies Allergy Verified 08/12/20 20:11 Review of Systems ROS Statement: Those systems with pertinent positive or pertinent negative responses have been documented in the HPI. ROS Other: All systems not noted in ROS Statement are negative. Limitations: ROS unobtainable due to patients medical condition (Altered mental status) Past Medical History Past Medical History: GERD/Reflux Additional Past Medical History / Comment(s): Back pain, IBS History of Any Multi-Drug Resistant Organisms: None Reported Past Surgical History: No Surgical Hx Reported Past Psychological History: Anxiety Smoking Status: Never smoker Past Alcohol Use History: Occasional Past Drug Use History: Marijuana General Exam General appearance: appears intoxicated Head exam: Present: atraumatic (Scalp contusion, occipital), normocephalic Eye exam: Present: PERRL. Absent: scleral icterus, conjunctival injection ENT exam: Present: normal oropharynx, TM's normal bilaterally, normal external ear exam Neck exam: Present: normal inspection. Absent: tenderness Respiratory exam: Present: rhonchi. Absent: respiratory distress, wheezes, rales, stridor, chest wall tenderness, accessory muscle use, decreased breath sounds, prolonged expiratory Cardiovascular Exam: Present: normal rhythm, tachycardia, normal heart sounds. Absent: systolic murmur, diastolic murmur, rubs, gallop GI/Abdominal exam: Present: soft. Absent: distended, tenderness, guarding, re bound, rigid, mass Extremities exam: Present: normal inspection, normal capillary refill. Absent: pedal edema, calf tenderness Back exam: Present: normal inspection Neurological exam: Present: altered, CN II-XII intact. Absent: motor sensory deficit Skin exam: Present: warm, dry, intact, normal color. Absent: rash Course Vital Signs 10/20/20 01:20 Temperature 98.4 F Pulse Rate 129 H Respiratory 20 Rate Blood Pressure 138/96 O2 Sat by Pulse 97 Oximetry Medical Decision Making - Medical Decision Making This patient is a 30-year-old man brought by and was to be evaluated after fall downstairs proximally 6 stairs. Computed tomography scan reveals what appears to be traumatic subarachnoid hemorrhage. Radiology did recommend CTA to rule out underlying aneurysm. The case is then discussed with [facility] for transfer and patient is accepted by Dr. Harris. Unable to perform reliable neurologic exam as patient had been given ketamine on scene per the EMS protocol. The patient mental status is altered. Patient does move all 4 extremities. No sensory deficit is apparent on the exam. Reflexes symmetric. GCS=11 (E=4, V=2, M=5). - Lab Data Result diagrams: 10/20/20 01:53 10/20/20 01:53 Lab Results 10/20/20 10/20/20 10/20/20 Range/Units 01:53 01:53 01:53 WBC 6.6 (3.8-10.6) k/uL RBC 5.06 (4.30-5.90) m/uL Hgb 17.3 (13.0-17.5) gm/dL Hct 48.7 (39.0-53.0) % MCV 96.2 (80.0-100.0) fL MCH 34.2 (25.0-35.0) pg MCHC 35.5 (31.0-37.0) g/dL RDW 12.7 (11.5-15.5) % Plt Count 168 (150-450) k/uL MPV 6.8 Neutrophils % 61 % Lymphocytes % 27 % Monocytes % 5 % Eosinophils % 2 % Basophils % 2 % Neutrophils # 4.0 (1.3-7.7) k/uL Lymphocytes # 1.8 (1.0-4.8) k/uL Monocytes # 0.3 (0-1.0) k/uL Eosinophils # 0.1 (0-0.7) k/uL Basophils # 0.1 (0-0.2) k/uL PT 10.0 (9.0-12.0) sec INR 1.0 (<1.2) APTT 22.3 (22.0-30.0) sec Sodium (137-145) mmol/L Potassium (3.5-5.1) mmol/L Chloride (98-107) mmol/L Carbon Dioxide (22-30) mmol/L Anion Gap mmol/L BUN (9-20) mg/dL Creatinine (0.66-1.25) mg/dL Est GFR (CKD-EPI)AfAm (>60 ml/min/1.73 sqM) Est GFR (CKD-EPI)NonAf (>60 ml/min/1.73 sqM) Glucose (74-99) mg/dL Lactic Ac Sepsis Rflx Plasma Lactic Acid Ender (0.7-2.0) mmol/L Calcium (8.4-10.2) mg/dL Total Bilirubin (0.2-1.3) mg/dL AST (17-59) U/L ALT (4-49) U/L Alkaline Phosphatase (38-126) U/L Troponin I (0.000-0.034) ng/mL Total Protein (6.3-8.2) g/dL Albumin (3.5-5.0) g/dL Urine Color Colorless Urine Appearance Clear (Clear) Urine pH 5.5 (5.0-8.0) Ur Specific [place] 1.006 (1.001-1.035) Urine Protein Trace H (Negative) Urine Glucose (UA) Negative (Negative) Urine Ketones Negative (Negative) Urine Blood Trace H (Negative) Urine Nitrite Negative (Negative) Urine Bilirubin Negative (Negative) Urine Urobilinogen <2.0 (<2.0) mg/dL Ur Leukocyte Esterase Negative (Negative) Urine WBC <1 (0-5) /hpf Ur Squamous Epith Cells <1 (0-4) /hpf Urine Opiates Screen Not Detected (NotDetected) Ur Oxycodone Screen Not Detected (NotDetected) Urine Methadone Screen Not Detected (NotDetected) Ur Propoxyphene Screen Not Detected (NotDetected) Ur Barbiturates Screen Not Detected (NotDetected) U Tricyclic Antidepress Not Detected (NotDetected) Ur Phencyclidine Scrn Not Detected (NotDetected) Ur Amphetamines Screen Not Detected (NotDetected) U Methamphetamines Scrn Not Detected (NotDetected) U Benzodiazepines Scrn Not Detected (NotDetected) Urine Cocaine Screen Not Detected (NotDetected) U Marijuana (THC) Screen Detected H (NotDetected) Serum Alcohol mg/dL Blood Type Blood Type Confirm Blood Type Recheck Bld Type Recheck Status Antibody Screen Spec Expiration Date 10/20/20 10/20/20 10/20/20 Range/Units 01:53 01:53 01:53 WBC (3.8-10.6) k/uL RBC (4.30-5.90) m/uL Hgb (13.0-17.5) gm/dL Hct (39.0-53.0) % MCV (80.0-100.0) fL MCH (25.0-35.0) pg MCHC (31.0-37.0) g/dL RDW (11.5-15.5) % Plt Count (150-450) k/uL MPV Neutrophils % % Lymphocytes % % Monocytes % % Eosinophils % % Basophils % % Neutrophils # (1.3-7.7) k/uL Lymphocytes # (1.0-4.8) k/uL Monocytes # (0-1.0) k/uL Eosinophils # (0-0.7) k/uL Basophils # (0-0.2) k/uL PT (9.0-12.0) sec INR (<1.2) APTT (22.0-30.0) sec Sodium 143 (137-145) mmol/L Potassium 4.3 (3.5-5.1) mmol/L Chloride 107 (98-107) mmol/L Carbon Dioxide 20 L (22-30) mmol/L Anion Gap 16 mmol/L BUN 8 L (9-20) mg/dL Creatinine 0.70 (0.66-1.25) mg/dL Est GFR (CKD-EPI)AfAm >90 (>60 ml/min/1.73 sqM) Est GFR (CKD-EPI)NonAf >90 (>60 ml/min/1.73 sqM) Glucose 123 H (74-99) mg/dL Lactic Ac Sepsis Rflx Plasma Lactic Acid Ender 2.3 H* (0.7-2.0) mmol/L Calcium 9.3 (8.4-10.2) mg/dL Total Bilirubin 1.0 (0.2-1.3) mg/dL AST 155 H (17-59) U/L ALT 328 H (4-49) U/L Alkaline Phosphatase 68 (38-126) U/L Troponin I <0.012 (0.000-0.034) ng/mL Total Protein 8.3 H (6.3-8.2) g/dL Albumin 4.9 (3.5-5.0) g/dL Urine Color Urine Appearance (Clear) Urine pH (5.0-8.0) Ur Specific [place] (1.001-1.035) Urine Protein (Negative) Urine Glucose (UA) (Negative) Urine Ketones (Negative) Urine Blood (Negative) Urine Nitrite (Negative) Urine Bilirubin (Negative) Urine Urobilinogen (<2.0) mg/dL Ur Leukocyte Esterase (Negative) Urine WBC (0-5) /hpf Ur Squamous Epith Cells (0-4) /hpf Urine Opiates Screen (NotDetected) Ur Oxycodone Screen (NotDetected) Urine Methadone Screen (NotDetected) Ur Propoxyphene Screen (NotDetected) Ur Barbiturates Screen (NotDetected) U Tricyclic Antidepress (NotDetected) Ur Phencyclidine Scrn (NotDetected) Ur Amphetamines Screen (NotDetected) U Methamphetamines Scrn (NotDetected) U Benzodiazepines Scrn (NotDetected) Urine Cocaine Screen (NotDetected) U Marijuana (THC) Screen (NotDetected) Serum Alcohol 272 H* mg/dL Blood Type Blood Type Confirm Blood Type Recheck Bld Type Recheck Status Antibody Screen Spec Expiration Date 10/20/20 10/20/20 10/20/20 Range/Units 01:53 02:00 02:26 WBC (3.8-10.6) k/uL RBC (4.30-5.90) m/uL Hgb (13.0-17.5) gm/dL Hct (39.0-53.0) % MCV (80.0-100.0) fL MCH (25.0-35.0) pg MCHC (31.0-37.0) g/dL RDW (11.5-15.5) % Plt Count (150-450) k/uL MPV Neutrophils % % Lymphocytes % % Monocytes % % Eosinophils % % Basophils % % Neutrophils # (1.3-7.7) k/uL Lymphocytes # (1.0-4.8) k/uL Monocytes # (0-1.0) k/uL Eosinophils # (0-0.7) k/uL Basophils # (0-0.2) k/uL PT (9.0-12.0) sec INR (<1.2) APTT (22.0-30.0) sec Sodium (137-145) mmol/L Potassium (3.5-5.1) mmol/L Chloride (98-107) mmol/L Carbon Dioxide (22-30) mmol/L Anion Gap mmol/L BUN (9-20) mg/dL Creatinine (0.66-1.25) mg/dL Est GFR (CKD-EPI)AfAm (>60 ml/min/1.73 sqM) Est GFR (CKD-EPI)NonAf (>60 ml/min/1.73 sqM) Glucose (74-99) mg/dL Lactic Ac Sepsis Rflx Y Plasma Lactic Acid Ender (0.7-2.0) mmol/L Calcium (8.4-10.2) mg/dL Total Bilirubin (0.2-1.3) mg/dL AST (17-59) U/L ALT (4-49) U/L Alkaline Phosphatase (38-126) U/L Troponin I (0.000-0.034) ng/mL Total Protein (6.3-8.2) g/dL Albumin (3.5-5.0) g/dL Urine Color Urine Appearance (Clear) Urine pH (5.0-8.0) Ur Specific [place] (1.001-1.035) Urine Protein (Negative) Urine Glucose (UA) (Negative) Urine Ketones (Negative) Urine Blood (Negative) Urine Nitrite (Negative) Urine Bilirubin (Negative) Urine Urobilinogen (<2.0) mg/dL Ur Leukocyte Esterase (Negative) Urine WBC (0-5) /hpf Ur Squamous Epith Cells (0-4) /hpf Urine Opiates Screen (NotDetected) Ur Oxycodone Screen (NotDetected) Urine Methadone Screen (NotDetected) Ur Propoxyphene Screen (NotDetected) Ur Barbiturates Screen (NotDetected) U Tricyclic Antidepress (NotDetected) Ur Phencyclidine Scrn (NotDetected) Ur Amphetamines Screen (NotDetected) U Methamphetamines Scrn (NotDetected) U Benzodiazepines Scrn (NotDetected) Urine Cocaine Screen (NotDetected) U Marijuana (THC) Screen (NotDetected) Serum Alcohol mg/dL Blood Type O Positive Blood Type Confirm O Positive Blood Type Recheck No Previous Record Bld Type Recheck Status CABO Indicated Antibody Screen NEGATIVE Spec Expiration Date 10/23/2020 - 7330 - EKG Data -: EKG Interpreted by Ia EKG shows normal: sinus rhythm, axis (Normal), intervals (Normal), QRS complexes (Normal), ST-T waves (Normal) Rate: tachycardia (Rate 114 BPM) Critical Care Time Critical Care Time: Yes (35 minutes) Disposition Clinical Impression: Traumatic subarachnoid hemorrhage, Alcohol intoxication Disposition: OTHER INSTITUTION NOT DEFINED Condition: Serious Is patient prescribed a controlled substance at d/c from ED?: No Referrals: None,Stated [Primary Care Provider] - 1-2 days - Out of Hospital Transfer - Req. Specs Out of Hospital Transfer - Requested Specifics: Other Emergency Center
--- NOTE | 2020-10-20 01:49 | XR ---
EXAM: XR Pelvis, 1 or 2 Views CLINICAL HISTORY: ITS.REASON XR Reason: Trauma TECHNIQUE: Frontal view of the pelvis. COMPARISON: None. FINDINGS: Bones/joints: Unremarkable. No acute fracture. No dislocation. Soft tissues: Unremarkable. IMPRESSION: No acute osseous abnormality. If there is persistent concern for fracture, recommend evaluation with CT.
--- NOTE | 2020-10-20 01:50 | XR ---
EXAM: XR Chest, 1 View CLINICAL HISTORY: ITS.REASON XR Reason: trauma TECHNIQUE: Frontal view of the chest. COMPARISON: None. FINDINGS: Lungs: Hypoinflated lungs with bibasilar opacities likely representing atelectasis. Pleural space: Unremarkable. No pneumothorax. Heart: Unremarkable. No cardiomegaly. Mediastinum: Unremarkable. Bones/joints: Unremarkable. IMPRESSION: Hypoinflated lungs with bibasilar opacities likely representing atelectasis. Aspiration and pneumonia are not entirely excluded.
[2020-10-20 02:01] VITALS: BP 138/96; PULSE 129; RESP 20; TEMP 98.4
[2020-10-20 02:02] LABS: Basophils # (A) 0.1 k/uL (0-0.2); Basophils % (A) 2 %; Eosinophils # (A) 0.1 k/uL (0-0.7); Eosinophils % (A) 2 %; HCT 48.7 % (39.0-53.0); HGB 17.3 gm/dL (13.0-17.5); Lymphocytes # (A) 1.8 k/uL (1.0-4.8); Lymphocytes % (A) 27 %; MCH 34.2 pg (25.0-35.0); MCHC 35.5 g/dL (31.0-37.0); MCV 96.2 fL (80.0-100.0); Mean Platelet Volume 6.8; Monocytes # (A) 0.3 k/uL (0-1.0); Monocytes % (A) 5 %; Neutrophils % (A) 61 %; Platelet Count 168 k/uL (150-450); RBC 5.06 m/uL (4.30-5.90); RDW 12.7 % (11.5-15.5); WBC 6.6 k/uL (3.8-10.6)
--- NOTE | 2020-10-20 02:03 | CT ---
EXAM: CT Head Without Intravenous Contrast CLINICAL HISTORY: ITS.REASON CT Reason: trauma TECHNIQUE: Axial computed tomography images of the head/brain without intravenous contrast. CTDI is 31.335 mGy and DLP is 735.15 mGy-cm. This CT exam was performed using one or more of the following dose reduction techniques: automated exposure control, adjustment of the mA and/or kV according to patient size, and/or use of iterative reconstruction technique. COMPARISON: None. FINDINGS: Brain: Subarachnoid blood along the suprasellar cistern, right sylvian fissure, and bilateral rectus gyri. No discrete intraventricular hemorrhage. No significant white matter disease. Ventricles: No discrete intraventricular hemorrhage. No ventriculomegaly. Bones/joints: Unremarkable. No acute fracture. Soft tissues: Small left parietal scalp contusion. Sinuses: Unremarkable as visualized. No acute sinusitis. Mastoid air cells: Unremarkable as visualized. No mastoid effusion. IMPRESSION: 1. Subarachnoid hemorrhage as described. While this may be traumatic, focal appearance may also be seen with a ruptured aneurysm. Recommend evaluation with CT angiogram. 2. Small left parietal scalp contusion. EXAM: CT Cervical Spine Without Intravenous Contrast CLINICAL HISTORY: ITS.REASON CT Reason: trauma TECHNIQUE: Axial computed tomography images of the cervical spine without intravenous contrast. CTDI is 31.335 mGy and DLP is 735.15 mGy-cm. This CT exam was performed using one or more of the following dose reduction techniques: automated exposure control, adjustment of the mA and/or kV according to patient size, and/or use of iterative reconstruction technique. COMPARISON: None. FINDINGS: Vertebrae: ippel-Feil deformity of C6-C7. No acute fracture. Discs/spinal canal/neural foramina: No spinal canal stenosis. Soft tissues: Unremarkable. IMPRESSION: No fracture or traumatic malalignment of the cervical spine. <MYCVCSECTION> Communications: 10/20/20 01:59 Call Doctor Regarding Intracranial Hemorrhage, called Dr. Lieberman on 10/20 01:59 (-05:00)
[2020-10-20 02:10] LABS: Partial Thromboplastin Time 22.3 sec (22.0-30.0)
[2020-10-20 02:14] LABS: ALT 328 U/L (4-49); AST 155 U/L (17-59); African American GFR (CKD) >90 (>60 ml/min/1.73 sqM); Albumin 4.9 g/dL (3.5-5.0); Alkaline Phosphatase 68 U/L (38-126); Anion Gap 16 mmol/L; Blood Urea Nitrogen 8 mg/dL (9-20); Calcium 9.3 mg/dL (8.4-10.2); Carbon Dioxide 20 mmol/L (22-30); Chloride 107 mmol/L (98-107); Glucose 123 mg/dL (74-99); Non-African American GFR(CKD) >90 (>60 ml/min/1.73 sqM); Potassium 4.3 mmol/L (3.5-5.1); Sodium 143 mmol/L (137-145); Total Protein 8.3 g/dL (6.3-8.2)
[2020-10-20 02:26] LABS: Alcohol 272 mg/dL
[2020-10-20 02:34] LABS: Appearance,Urine Clear (Clear); Bilirubin,Urine Negative (Negative); Blood,Urine Trace (Negative); Color,Urine Colorless; Glucose,Urine (UA) Negative (Negative); Ketones,Urine Negative (Negative); Leukocyte Esterase,Urine Negative (Negative); Nitrite,Urine Negative (Negative); PH, Urine 5.5 (5.0-8.0); Protein,Urine Trace (Negative); Specific Gravity,Urine 1.006 (1.001-1.035); Squamous Epithelial Cell,Urine <1 /hpf (0-4); Urobilinogen,Urine <2.0 mg/dL (<2.0); WBC,Urine <1 /hpf (0-5)
[2020-10-20 02:41] LABS: Amphetamine Screen,Urine Not Detected (NotDetected); Barbiturate Screen,Urine Not Detected (NotDetected); Benzodiazepines Screen,Urine Not Detected (NotDetected); Cocaine Screen,Urine Not Detected (NotDetected); Methadone Screen, Urine Not Detected (NotDetected); Opiate Screen,Urine Not Detected (NotDetected); Oxycodone Screen, Urine Not Detected (NotDetected); Phencyclidine Screen,Urine Not Detected (NotDetected); Tricyclic Antidepressant,Urine Not Detected (NotDetected); Urn Cannabinoid Scrn Detected (NotDetected)
--- NOTE | 2020-10-20 02:48 | CT ---
EXAM: CT Angiography Head With Intravenous Contrast CLINICAL HISTORY: ITS.REASON CT Reason: possible aneurysm TECHNIQUE: Axial computed tomographic angiography images of the head with intravenous contrast. CTDI is 68.77 mGy and DLP is 1327.6 mGy-cm. This CT exam was performed using one or more of the following dose reduction techniques: automated exposure control, adjustment of the mA and/or kV according to patient size, and/or use of iterative reconstruction technique. MIP reconstructed images were created and reviewed. COMPARISON: MRI brain from May 05, 2019. FINDINGS: Right internal carotid artery: No acute findings. Intracranial segment is patent with no significant stenosis. No aneurysm. Right anterior cerebral artery: Unremarkable. No occlusion or significant stenosis. No aneurysm. Right middle cerebral artery: Unremarkable. No occlusion or significant stenosis. No aneurysm. Right posterior cerebral artery: Unremarkable. No occlusion or significant stenosis. No aneurysm. Right vertebral artery: The distal right vertebral artery is somewhat small but patent. Left internal carotid artery: No acute findings. Intracranial segment is patent with no significant stenosis. No aneurysm. Left anterior cerebral artery: Unremarkable. No occlusion or significant stenosis. No aneurysm. Left middle cerebral artery: Unremarkable. No occlusion or significant stenosis. No aneurysm. Left posterior cerebral artery: Unremarkable. No occlusion or significant stenosis. No aneurysm. Left vertebral artery: Unremarkable as visualized. Basilar artery: Unremarkable. No occlusion or significant stenosis. No aneurysm. IMPRESSION: No anterior communicating artery aneurysm is visualized on the current examination. Arterial structures of the brain are patent. No arterial thrombus or vascular malformation is seen. The source of the subarachnoid hemorrhage is not identified. There is a posterior scalp contusion. Likely trauma.
== END 2020-10-20 03:16 | disposition other institution (70) ==
LOC: EC 01:20
DX: S06.6X9A Traumatic subarachnoid hemorrhage with loss of consciousness of unspecified duration, initial encounter (principal); S00.03XA Contusion of scalp, initial encounter; F10.129 Alcohol abuse with intoxication, unspecified; K58.9 Irritable bowel syndrome, unspecified; R40.2420 Glasgow coma scale score 9-12, unspecified time; Y90.9 Presence of alcohol in blood, level not specified; Z79.899 Other long term (current) drug therapy; Z23 Encounter for immunization; W10.9XXA Fall (on) (from) unspecified stairs and steps, initial encounter; Y92.009 Unspecified place in unspecified non-institutional (private) residence as the place of occurrence of the external cause
CPT/HCPCS: 36415; 86900; 86901; 80053; 83605; 84484; 85025; 85610; 85730; 86850; 81001; 80306; 72170; 71045; 72125; 70496; 70450; 90715; 99285; 96374; 96376; 96361 ×2; 90471; G0480; J2060; Q9967; 80320; 96375

== ENCOUNTER 2020-10-30 14:32 | Emergency (ER) | payer OTHER ==
[2020-10-30 14:44] VITALS: BP 140/95; PULSE 81; RESP 18; TEMP 98.8
--- NOTE | 2020-10-30 15:25 | ED ---
Recheck HPI - General Chief Complaint: Recheck/Abnormal Lab/Rx Stated Complaint: Revisit Staple Removal Time Seen by Provider: 10/30/20 14:52 Source: patient Mode of arrival: ambulatory Limitations: no limitations - History of Present Illness Initial Comments: Patient is a 30-year-old male presenting to the emergency department for staple removal. Patient states he was seen in the ER 10 days ago after a fall and had 5 diann placed in his posterior scalp. Patient was then transferred to [facility] for a brain bleed. Patient has been following with [facility] trauma center as well as their neurologist. He has had 2 follow-up since his injury and does have a few more scheduled. States he has been healing well. He does have occasional mild headaches which they have told him is normal at this time. He denies any fever or chills. Denies any nausea or vomiting. He denies any chest pain or short of breath. He has no further complaints at this time. - Related Data Home Medications Medication Instructions Recorded Confirmed Dicyclomine [Bentyl] 20 mg PO QID PRN 11/17/15 07/27/18 Omeprazole 20 mg PO HS 07/08/16 07/27/18 Cyclobenzaprine [Flexeril] 10 mg PO HS 07/27/18 07/27/18 Previous Rx's Medication Instructions Recorded Ibuprofen [Motrin] 600 mg PO Q6HR PRN #24 tab 04/13/18 predniSONE 50 mg PO DAILY #5 tablet 07/27/18 Cyclobenzaprine [Flexeril] 10 mg PO HS PRN 7 Days #7 tab 02/13/19 Ibuprofen 800 mg PO Q8H PRN 7 Days #21 tablet 02/13/19 Azithromycin [Zithromax Z-pack (6 0 mg PO DIRECTED #1 pack 04/16/19 tabs)] predniSONE 50 mg PO DAILY #5 tab 04/16/19 Cyclobenzaprine [Flexeril] 10 mg PO TID #12 tab 08/12/20 Ibuprofen [Motrin] 600 mg PO Q6HR PRN #20 tab 08/12/20 Allergies Allergy/AdvReac Type Severity Reaction Status Date / Time No Known Allergies Allergy Verified 10/30/20 14:43 Review of Systems ROS Statement: Those systems with pertinent positive or pertinent negative responses have been documented in the HPI. ROS Other: All systems not noted in ROS Statement are negative. Past Medical History Past Medical History: GERD/Reflux Additional Past Medical History / Comment(s): Back pain, IBS History of Any Multi-Drug Resistant Organisms: None Reported Past Surgical History: No Surgical Hx Reported Past Psychological History: Anxiety Smoking Status: Never smoker Past Alcohol Use History: Occasional Past Drug Use History: Marijuana General Exam - General Exam Comments Initial Comments: GENERAL: Patient is well-developed and well-nourished. Patient is nontoxic and in no acute distress. HEAD: Atraumatic, normocephalic. EYES: Pupils equal round and reactive to light, extraocular movements intact, sclera anicteric, conjunctiva are normal. Eyelids were unremarkable. ENT: TMs normal, nares patent, oropharynx clear without exudates. Moist mucous membranes. NECK: Normal range of motion, supple without lymphadenopathy or JVD. LUNGS: Unlabored respirations. Breath sounds clear to auscultation bilaterally and equal. No wheezes rales or rhonchi. HEART: Regular rate and rhythm without murmurs, rubs or gallops. ABDOMEN: Soft, nontender, normoactive bowel sounds. No guarding, no rebound. No masses appreciated. : Deferred MUSCULOSKELETAL: Normal extremities with adequate strength and normal range of motion, no pitting or edema. No clubbing or cyanosis. NEUROLOGICAL: Patient is alert and oriented x 3. Motor and sensory are also intact. Cranial nerves II through XII grossly intact. Symmetrical smile. Normal speech, normal gait. PSYCH: Normal mood, normal affect. SKIN: Warm, Dry, normal turgor, no rashes. He should has a small posterior healing laceration with 5 diann present. No signs of infection, mild scabs present. Limitations: no limitations Course Vital Signs 10/30/20 14:39 Temperature 98.8 F Pulse Rate 81 Respiratory 18 Rate Blood Pressure 140/95 O2 Sat by Pulse 97 Oximetry Procedures - Procedures Initial comment: I removed 5 diann from patient's posterior scalp. No signs of infection, patient tolerated procedure well. There is no active bleeding. Medical Decision Making - Medical Decision Making Patient is a 30-year-old male here for staple removal. He had diann placed 10 days ago after a fall. His exam is otherwise unremarkable. He is still being followed by [facility] trauma team and neurology. I did remove patient's 5 diann without difficulty. There is no sign of infection, no active bleeding. He is stable for discharge. He can get a follow-up with his regular doctors. Disposition Clinical Impression: Removal of diann Disposition: HOME SELF-CARE Condition: Stable Instructions (If sedation given, give patient instructions): Acute Wound Care (ED) Additional Instructions: Please return to the Emergency Department if symptoms worsen or any other concerns. 5 diann were removed today. Use may wash your hair and shower as normal. Follow up with your regular doctor as normal. Is patient prescribed a controlled substance at d/c from ED?: No Referrals: Lane Campos MD [Primary Care Provider] - 1-2 days
== END 2020-10-30 15:28 | disposition home or self-care (01) ==
LOC: EC 14:32
DX: Z48.02 Encounter for removal of sutures (principal)
CPT/HCPCS: 99281

== ENCOUNTER → 2021-01-07 | Outpatient (CLI) | payer OTHER ==
[2021-01-07 20:13] LABS: Albumin 4.5 g/dL (3.80-4.90); Albumin/Globulin Ratio 2.14 (1.60-3.17); Bilirubin, Conjugated 0.3 mg/dL (0.20-0.40); Globulin 2.1 g/dL (1.6-3.3); Total Bilirubin 1.3 mg/dL (0.2-1.2); Total Protein 6.6 g/dL (6.2-8.2)
== END | disposition home or self-care (01) ==
LOC: LABWHC1 14:34
PROVIDERS: ATTEND Nurse Practitioner
DX: R74.01 Elevation of levels of liver transaminase levels (principal)
CPT/HCPCS: 36415; 80076

== ENCOUNTER 2021-06-05 13:54 | Emergency (ER) | payer OTHER ==
[2021-06-05 13:58] VITALS: BP 154/103; PULSE 61; RESP 16; TEMP 97.7
[2021-06-05] MEDS ORDERED: KETOROLAC 15 MG/ML 1 ML VIAL IM STA (14:16)
[2021-06-05] MEDS ORDERED: LIDOCAINE 5% PATCH TOPICAL STA (14:16)
[2021-06-05] MEDS ORDERED: DEXAMETHASONE SOD PHOSPHATE 10 MG/ML 1 ML VIAL IM STA (14:16)
[2021-06-05] MEDS ORDERED: CYCLOBENZAPRINE 10 MG TAB PO STA (14:16)
--- NOTE | 2021-06-05 14:20 | ED ---
Back Pain HPI - General Chief Complaint: Back Pain/Injury Stated Complaint: Back pain Time Seen by Provider: 06/05/21 14:03 Source: patient Limitations: no limitations - History of Present Illness Initial Comments: 30-year-old male presented emergency Department with a chief complaint of back pain. Patient reports he was working today, bent over and felt sudden onset of left-sided paraspinal tenderness without any radiation. He states this is very typical for him. He states he is known to "throw his back out". States he has been here multiple times for the same thing. States she is typically given Toradol, muscle relaxer and a steroid. Denies any saddle anesthesia, urinary retention with overflow or bowel incontinence. Denies any other complaints. - Related Data Home Medications Medication Instructions Recorded Confirmed Dicyclomine [Bentyl] 20 mg PO QID PRN 11/17/15 07/27/18 Omeprazole 20 mg PO HS 07/08/16 07/27/18 Cyclobenzaprine [Flexeril] 10 mg PO HS 07/27/18 07/27/18 Previous Rx's Medication Instructions Recorded Ibuprofen [Motrin] 600 mg PO Q6HR PRN #24 tab 04/13/18 predniSONE 50 mg PO DAILY #5 tablet 07/27/18 Cyclobenzaprine [Flexeril] 10 mg PO HS PRN 7 Days #7 tab 02/13/19 Ibuprofen 800 mg PO Q8H PRN 7 Days #21 tablet 02/13/19 Azithromycin [Zithromax Z-pack (6 0 mg PO DIRECTED #1 pack 04/16/19 tabs)] predniSONE 50 mg PO DAILY #5 tab 04/16/19 Cyclobenzaprine [Flexeril] 10 mg PO TID #12 tab 08/12/20 Ibuprofen [Motrin] 600 mg PO Q6HR PRN #20 tab 08/12/20 Cyclobenzaprine [Flexeril] 10 mg PO TID #30 tab 06/05/21 Allergies Allergy/AdvReac Type Severity Reaction Status Date / Time No Known Allergies Allergy Verified 06/05/21 13:56 Review of Systems ROS Statement: Those systems with pertinent positive or pertinent negative responses have been documented in the HPI. ROS Other: All systems not noted in ROS Statement are negative. Past Medical History Past Medical History: GERD/Reflux Additional Past Medical History / Comment(s): Back pain, IBS History of Any Multi-Drug Resistant Organisms: None Reported Past Surgical History: No Surgical Hx Reported Past Psychological History: Anxiety Smoking Status: Never smoker Past Alcohol Use History: Occasional Past Drug Use History: Marijuana General Exam Limitations: no limitations General appearance: alert, in no apparent distress Head exam: Present: atraumatic, normocephalic, normal inspection Eye exam: Present: normal appearance, PERRL Pupils: Present: normal accommodation ENT exam: Present: normal exam, normal oropharynx, mucous membranes moist Neck exam: Present: normal inspection, full ROM. Absent: tenderness, lymphadenopathy Respiratory exam: Present: normal lung sounds bilaterally. Absent: respiratory distress Cardiovascular Exam: Present: regular rate, normal rhythm, normal heart sounds. Absent: systolic murmur Extremities exam: Present: normal inspection, full ROM, normal capillary refill. Absent: tenderness Back exam: Present: normal inspection, full ROM, tenderness, paraspinal tenderness (Left-sided). Absent: CVA tenderness (R), CVA tenderness (L), verte bral tenderness Neurological exam: Present: alert, oriented X3 Psychiatric exam: Present: normal affect, normal mood Skin exam: Present: warm, dry, intact, normal color Course Vital Signs 06/05/21 13:56 Temperature 97.7 F Pulse Rate 61 Respiratory 16 Rate Blood Pressure 154/103 O2 Sat by Pulse 98 Oximetry Medical Decision Making - Medical Decision Making 30-year-old male presents emergency Department with a chief complaint of back pain. Acute on chronic back pain. Patient was given Toradol, Decadron, Lidoderm patch and Flexeril. Will be discharged with Flexeril. Advised about the possible side effects of medication. Advised to follow-up with manipulative therapy specialist. Case discussed with physician. Disposition Clinical Impression: Mechanical back pain, Strain of lumbar region Disposition: HOME SELF-CARE Condition: Stable Instructions (If sedation given, give patient instructions): Acute Low Back Pain (ED) Additional Instructions: Please return to the Emergency Department if symptoms worsen or any other concerns. Prescriptions: Cyclobenzaprine [Flexeril] 10 mg PO TID #30 tab Is patient prescribed a controlled substance at d/c from ED?: No Referrals: Lane Campos MD [Primary Care Provider] - 1-2 days Jaelyn Sarabia DO [Doctor of Osteopathic Medicine] - 1-2 days Time of Disposition: 14:20
== END 2021-06-05 14:35 | disposition home or self-care (01) ==
LOC: EC 13:54
DX: S39.012A Strain of muscle, fascia and tendon of lower back, initial encounter (principal); K21.9 Gastro-esophageal reflux disease without esophagitis; F41.9 Anxiety disorder, unspecified; F12.90 Cannabis use, unspecified, uncomplicated; Z79.1 Long term (current) use of non-steroidal anti-inflammatories (NSAID); Z79.52 Long term (current) use of systemic steroids; Z79.899 Other long term (current) drug therapy; X50.1XXA Overexertion from prolonged static or awkward postures, initial encounter
CPT/HCPCS: 96372 ×2; 99283; J1100; J1885

== ENCOUNTER 2023-02-15 18:50 | Emergency (ER) | payer OTHER ==
--- NOTE | 2023-02-15 19:38 | ED ---
General Adult HPI <Haleigh Perez - Last Filed: 02/15/23 19:37> - General Source: patient, RN notes reviewed Mode of arrival: wheelchair Limitations: no limitations - History of Present Illness MD Complaint: back pain Onset/Timin -: days(s) <Gabriela Pacheco - Last Filed: 02/16/23 01:08> - General Chief complaint: Back Pain/Injury Stated complaint: back pain/injury Time Seen by Provider: 02/15/23 19:38 - History of Present Illness Initial comments: 32-year-old male with no significant past medical history presents emergency Department chief complaint of low back pain that started on Wednesday. He is reporting pain down his leg ever since. Denies fever, saddle paresthesia, loss of bowel or bladder function (Haleigh Perez) When I went to evaluate the patient, states that he threw his back out at work. This has been a recurrent problem for him. States that the pain feels exactly the same. He tried taking ibuprofen 600 mg, which he states has not been e ffective. As listed above, he denies any loss of bowel/bladder control or saddle anesthesia. Describes the pain as being in the middle of the lower back. He is still able to walk and stand, but states that it is painful. Denies any fevers, chills, sore throat, cough, dyspnea, chest pain, palpitations, abdominal pain, nausea, vomiting, diarrhea, or headaches. (Gabriela Pacheco) - Related Data Home Medications Medication Instructions Recorded Confirmed Dicyclomine [Bentyl] 20 mg PO QID PRN 11/17/15 07/27/18 Omeprazole 20 mg PO HS 07/08/16 07/27/18 Cyclobenzaprine [Flexeril] 10 mg PO HS 07/27/18 07/27/18 Previous Rx's Medication Instructions Recorded Ibuprofen [Motrin] 600 mg PO Q6HR PRN #24 tab 04/13/18 predniSONE 50 mg PO DAILY #5 tablet 07/27/18 Cyclobenzaprine [Flexeril] 10 mg PO HS PRN 7 Days #7 tab 02/13/19 Ibuprofen 800 mg PO Q8H PRN 7 Days #21 tablet 02/13/19 Azithromycin [Zithromax Z-pack (6 0 mg PO DIRECTED #1 pack 06/16/19 tabs)] predniSONE 50 mg PO DAILY #5 tab 04/16/19 Cyclobenzaprine [Flexeril] 10 mg PO TID #12 tab 08/12/20 Ibuprofen [Motrin] 600 mg PO Q6HR PRN #20 tab 08/12/20 Cyclobenzaprine [Flexeril] 10 mg PO TID #30 tab 06/05/21 Lidocaine 5% Patch [Lidoderm] 1 patch TOPICAL DAILY #6 patch 06/05/21 Cyclobenzaprine [Flexeril] 10 mg PO TID PRN #15 tab 02/15/23 Diclofenac Sodium [Voltaren] 75 mg PO BID PRN #15 tab 02/15/23 Allergies Allergy/AdvReac Type Severity Reaction Status Date / Time No Known Allergies Allergy Verified 02/15/23 19:40 Review of Systems ROS Other: All systems not noted in ROS Statement are negative. <Haleigh Perez - Last Filed: 02/15/23 19:37> ROS Other: All systems not noted in ROS Statement are negative. <Gabriela Pacheco - Last Filed: 02/16/23 01:08> ROS Statement: Those systems with pertinent positive or pertinent negative responses have been documented in the HPI. Past Medical History Past Medical History: GERD/Reflux Additional Past Medical History / Comment(s): Back pain, IBS History of Any Multi-Drug Resistant Organisms: None Reported Past Surgical History: No Surgical Hx Reported Past Psychological History: Anxiety Smoking Status: Never smoker Past Alcohol Use History: Occasional Past Drug Use History: Marijuana <Haleigh Perez - Last Filed: 02/15/23 19:37> General Exam <Haleigh Perez - Last Filed: 02/15/23 19:37> Limitations: no limitations General appearance: alert, in distress Head exam: Present: atraumatic, normocephalic, normal inspection Respiratory exam: Present: normal lung sounds bilaterally. Absent: respiratory distress, wheezes, rales, rhonchi, stridor Cardiovascular Exam: Present: regular rate, normal rhythm, normal heart sounds. Absent: systolic murmur, diastolic murmur, rubs, gallop, clicks Back exam: Present: normal inspection, tenderness (Lower lumbar spine) Neurological exam: Present: alert, oriented X3, CN II-XII intact Psychiatric exam: Present: normal affect, normal mood Skin exam: Present: warm, dry, intact, normal color. Absent: rash <Gabriela Pacheco - Last Filed: 02/16/23 01:08> - General Exam Comments Initial Comments: Visual Physical Exam Vital signs reviewed General: Well-appearing, nontoxic, no acute distress. Head: Normocephalic, atraumatic Eyes: PERRLA, EOMI ENT: Airway patent Chest: Nonlabored breathing Skin: No visual rash, normal skin tone Neuro: Alert and oriented 3 Musculoskeletal: No gross abnormalities (Haleigh Perez) Course Vital Signs 02/15/23 02/15/23 19:35 22:28 Temperature 98.2 F 98.2 F Pulse Rate 91 95 Respiratory 20 20 Rate Blood Pressure 168/105 140/89 O2 Sat by Pulse 96 96 Oximetry Medical Decision Making <Gabriela Pacheco - Last Filed: 02/16/23 01:08> - Medical Decision Making This is a 32-year-old male who presents to the emergency department for lower back pain. Was pt. sent in by a medical professional or institution? @ -No Did you speak to anyone other than the patient for history? @ -No Did you review nursing and triage notes? @ -Yes, and I agree, it is accurate with regards to the patient's symptoms. Were old charts reviewed? @ -No Differential Diagnosis? @ -Differential Back Pain: Strain, zoster, cauda equina syndrome, epidural abscess, vertebral osteomyelitis, discitis, fracture, subluxation, disc herniation, DJD, spinal stenosis, dissection, AAA, pancreatitis, peptic ulcer disease, pyelonephritis, kidney stone, this is not meant to be an all-inclusive list. What testing was considered but not performed? (CT, X-rays, U/S, labs)? Why? @ -There was consideration of an x-ray, however the patient declined, given that this is a recurrent problem for him and the pain feels the same as the other times he threw his back out. What meds were considered but not given? Why? @ -None Did you discuss the management of the patient with other professionals? @ -No Did you reconcile home meds? @ -No Was smoking cessation discussed for >3mins.? @ -No Was critical care preformed (if so, how long)? @ -No Were there social determinants of health that impacted care today? How? (Homelessness, low income, unemployed, alcoholism, drug addiction, transportation, low edu. Level, literacy, decrease access to med. care, halfway, rehab)? @ -No Was there de-escalation of care discussed even if they declined? (Discuss DNR or withdrawal of care, Hospice)? @ -No What co-morbidities impacted this encounter? (DM, HTN, Smoking, COPD, CAD, Cancer, CVA, Hep., AIDS, mental health diagnosis, sleep apnea, morbid obesity)? @ -None Was patient admitted / discharged? @ -Discharged. Patient opted to avoid x-rays at this time, given that the symptoms feel the same as they have when he has previously strained his back. I'm in agreement with this. He is given IM Toradol, Decadron and Flexeril. Patient inquired about anti-inflammatories other than ibuprofen. He was given a prescription for diclofenac. Advised that he can take either this or the ibuprofen, whichever one he finds more effective. He can take either of them with Tylenol, however he is instructed to avoid taking the diclofenac with any other anti-inflammatories. Information for orthopedic follow-up provided per his request. I also educated the patient on the need to bend at the knees instead of bending over at the waist to reduce the likelihood of this continuing to happen. Undiagnosed new problem with uncertain prognosis? @ -None Drug Therapy requiring intensive monitoring for toxicity (Heparin, Nitro, Insulin, Cardizem)? @ -None Were any procedures done? @ -None Diagnosis/symptom? @ -Lumbar strain Acute, or Chronic, or Acute on Chronic? @ -Acute Uncomplicated (without systemic symptoms) or Complicated (systemic symptoms)? @ -Uncomplicated Side effects of treatment? @ -None Exacerbation, Progression, or Severe Exacerbation] @ -Not applicable Poses a threat to life or bodily function? @ -The pain is making it somewhat difficult to function for the time being. Return precautions reviewed in depth, the patient is instructed to return to the emergency department with any new, worsening, or concerning symptoms. Patient verbalized understanding. This case was discussed in detail with the attending ED physician, Dr. Zamora. Presentation, findings, and treatment plan discussed in detail as well. (Gabriela Pacheco) Disposition <Haleigh Perez - Last Filed: 02/15/23 19:37> Is patient prescribed a controlled substance at d/c from ED?: No <Gabriela Pacheco - Last Filed: 02/16/23 01:08> Clinical Impression: Low back strain Disposition: HOME SELF-CARE Instructions (If sedation given, give patient instructions): Low Back Strain (ED), Acute Low Back Pain (ED) Additional Instructions: Return to the emergency department with any new, worsening, or concerning symptoms. You can take the diclofenac up to twice daily as needed for pain relief. If you choose to take this, do not take any other [id number] anti-inflammatories such as ibuprofen with it. You may take it with Tylenol. You can take the Flexeril up to 3 times daily, however be aware that it will make you sleepy and you should avoid driving or operating machinery when taking this. Contact orthopedics as listed below for a follow-up appointment and reevaluation of ongoing symptoms. Make sure that whenever you bend, you bend with your knees instead of bending over at the waist to avoid further exacerbating the pain. Follow up with your primary care provider in 1-2 days. Prescriptions: Cyclobenzaprine [Flexeril] 10 mg PO TID PRN #15 tab PRN Reason: Pain Diclofenac Sodium [Voltaren] 75 mg PO BID PRN #15 tab PRN Reason: Pain Referrals: Lane Campos MD [Primary Care Provider] - 1-2 days Jaelyn Sarabia DO [Doctor of Osteopathic Medicine] - 1-2 days
[2023-02-15 19:40] VITALS: RESP 20; TEMP 98.2
[2023-02-15] MEDS ORDERED: KETOROLAC 15 MG/ML 1 ML VIAL IM STA (20:41)
[2023-02-15] MEDS ORDERED: DEXAMETHASONE SOD PHOSPHATE 10 MG/ML 1 ML VIAL IM STA (20:41)
[2023-02-15] MEDS ORDERED: IBUPROFEN 600 MG STARTER PACK 4 TAB BTL PO STA (20:41)
[2023-02-15] MEDS ORDERED: CYCLOBENZAPRINE 10MG STARTER 3 TAB BTL PO STA (20:41)
[2023-02-15] MEDS ORDERED: traMADol 50 MG STARTER PACK 3 TAB BTL PO STA (20:47)
[2023-02-15 22:32] VITALS: BP 140/89; PULSE 95
== END 2023-02-15 22:28 | disposition home or self-care (01) ==
LOC: EC 18:50
DX: S39.012A Strain of muscle, fascia and tendon of lower back, initial encounter (principal); K21.9 Gastro-esophageal reflux disease without esophagitis; F41.9 Anxiety disorder, unspecified; F12.90 Cannabis use, unspecified, uncomplicated; Z79.899 Other long term (current) drug therapy; X50.9XXA Other and unspecified overexertion or strenuous movements or postures, initial encounter
CPT/HCPCS: 99283; 96372 ×2; J1100; J1885

== ENCOUNTER 2023-04-21 11:59 | Emergency (ER) | payer OTHER ==
[2023-04-21] MEDS ORDERED: SODIUM CHLORIDE 0.9% 1,000 ML IV STA (12:42)
--- NOTE | 2023-04-21 12:53 | ED ---
Dizziness HPI - General Chief Complaint: Dizziness Stated Complaint: lightheaded Time Seen by Provider: 04/21/23 12:10 Source: patient, EMS, RN notes reviewed, old records reviewed Mode of arrival: EMS Limitations: no limitations - History of Present Illness Initial Comments: This is a 32-year-old male to the emergency department for evaluation of a near syncopal event weakness lightheadedness dizziness tachycardia not feeling well presents by EMS for evaluation. Patient states this does have overdose and recurrent symptoms after he does drink Admits to significant alcohol intake yesterday daily MD Complaint: dizziness, lightheadedness -: hour(s) Timing: sudden onset, gradual onset, awoke with symptoms Description: sense of movement, lightheadedness, off-balance, difficulty walking, near-syncope History of Same: Yes Worsens With: nothing Associated Symptoms: denies other symptoms - Related Data Home Medications Medication Instructions Recorded Confirmed Dicyclomine [Bentyl] 40 mg PO DAILY 11/17/15 04/21/23 Dicyclomine [Bentyl] 40 mg PO DAILY PRN 04/21/23 04/21/23 Omeprazole Magnesium [PriLOSEC OTC] 20 mg PO DAILY 04/21/23 04/21/23 Allergies Allergy/AdvReac Type Severity Reaction Status Date / Time No Known Allergies Allergy Verified 04/21/23 13:36 Review of Systems ROS Statement: Those systems with pertinent positive or pertinent negative responses have been documented in the HPI. ROS Other: All systems not noted in ROS Statement are negative. Past Medical History Past Medical History: GERD/Reflux Additional Past Medical History / Comment(s): Back pain, IBS History of Any Multi-Drug Resistant Organisms: None Reported Past Surgical History: No Surgical Hx Reported Past Psychological History: Anxiety, Depression Smoking Status: Former smoker Past Alcohol Use History: Heavy Past Drug Use History: Marijuana General Exam Limitations: no limitations General appearance: alert, in no apparent distress, anxious Head exam: Present: atraumatic, normocephalic, normal inspection Eye exam: Present: normal appearance, PERRL, EOMI. Absent: scleral icterus, conjunctival injection, periorbital swelling ENT exam: Present: normal exam, mucous membranes moist Neck exam: Present: normal inspection. Absent: tenderness, meningismus, l ymphadenopathy Respiratory exam: Present: normal lung sounds bilaterally. Absent: respiratory distress, wheezes, rales, rhonchi, stridor Cardiovascular Exam: Present: regular rate, normal rhythm, normal heart sounds. Absent: systolic murmur, diastolic murmur, rubs, gallop, clicks GI/Abdominal exam: Present: soft, normal bowel sounds. Absent: distended, tenderness, guarding, rebound, rigid Extremities exam: Present: normal inspection, full ROM, normal capillary refill. Absent: tenderness, pedal edema, joint swelling, calf tenderness Back exam: Present: normal inspection Neurological exam: Present: alert, oriented X3, CN II-XII intact Psychiatric exam: Present: normal affect, normal mood Skin exam: Present: warm, dry, intact, normal color. Absent: rash Course Vital Signs 04/21/23 04/21/23 04/21/23 12:05 12:33 14:29 Temperature 98.5 F 97.7 F Pulse Rate 92 84 78 Respiratory 18 17 18 Rate Blood Pressure 159/103 139/93 158/96 O2 Sat by Pulse 98 95 100 Oximetry 04/21/23 15:47 Temperature 98.0 F Pulse Rate 75 Respiratory 17 Rate Blood Pressure 138/88 O2 Sat by Pulse 95 Oximetry - Reevaluation(s) Reevaluation #1: 04/21/23 23:22 Medical records reviewed Reevaluation #2: 04/21/23 23:22 Patient symptoms remained improved and continued to improve Reevaluation #3: 04/21/23 23:22 Patient informed of results questions answered Reevaluation #4: 04/21/23 23:22 Was pt. sent in by a medical professional or institution? @ -no Did you speak to anyone other than the patient for history? @ -no Did you review nursing and triage notes? @ -agree Were old charts reviewed? @ -no Differential Diagnosis? @ -prior EKG interpreted by me (3pts min.)? @ -yes X-rays interpreted by me (1pt min.)? @ -no CT interpreted by me (1pt min.)? @ -no U/S interpreted by me (1pt. min.)? @ -no What testing was considered but not performed? (CT, X-rays, U/S, labs)? Why? @ -no What meds were considered but not given? Why? @ -no Did you discuss the management of the patient with other professionals? @ -no Did you reconcile home meds? @ -no Was smoking cessation discussed for >3mins.? @ -no Was critical care preformed (if so, how long)? @ -no Were there social determinants of health that impacted care today? How? (Homelessness, low income, unemployed, alcoholism, drug addiction, transportation, low edu. Level, literacy, decrease access to med. care, residential, rehab)? @ -no Was there de-escalation of care discussed even if they declined? (Discuss DNR or withdrawal of care, Hospice)? @ -no What co-morbidities impacted this encounter? (DM, HTN, Smoking, COPD, CAD, Cancer, CVA, Hep., AIDS, mental health diagnosis, sleep apnea, morbid obesity)? @ -none Was patient admitted / discharged? @ -32 male to the emergency department for significant dizziness tachycardia likely from drinking patient does believe that he is suffering from Dehydration. Patient feels improved here in the urine can be discharged home, had increased heart rate today and he does have this occasionally after no drinking. She feels better currently and can be discharged home Discharge Undiagnosed new problem with uncertain prognosis? @ -no Drug Therapy requiring intensive monitoring for toxicity (Heparin, Nitro, Insulin, Cardizem)? @ -no Were any procedures done? @ -no Diagnosis/symptom? @ -Syncope, dehydration, tachycardia Acute, or Chronic, or Acute on Chronic? @ -Acute Uncomplicated (without systemic symptoms) or Complicated (systemic symptoms)? @ -uncomplicated Side effects of treatment? @ -no Exacerbation, Progression, or Severe Exacerbation] @ -no Poses a threat to life or bodily function? @ -Past syncope can be a life threat EKG Findings - EKG Comments: EKG Findings:: EKG sinus 88 [place] 136 QRS 89 QTC 383 - EKG Results: EKG: interpreted by SHADI Medical Decision Making - Medical Decision Making 32 male to the emergency department for significant dizziness tachycardia likely from drinking patient does believe that he is suffering from Dehydration. Patient feels improved here in the urine can be discharged home, had increased heart rate today and he does have this occasionally after no drinking. She f eels better currently and can be discharged home - Lab Data Result diagrams: 04/21/23 12:54 04/21/23 12:54 Lab Results 04/21/23 04/21/23 04/21/23 Range/Units 12:54 12:54 12:54 WBC 3.4 L (3.8-10.6) k/uL RBC 4.75 (4.30-5.90) m/uL Hgb 15.6 (13.0-17.5) gm/dL Hct 45.7 (39.0-53.0) % MCV 96.2 (80.0-100.0) fL MCH 32.9 (25.0-35.0) pg MCHC 34.2 (31.0-37.0) g/dL RDW 12.8 (11.5-15.5) % Plt Count 180 (150-450) k/uL MPV 7.1 Neutrophils % 56 % Lymphocytes % 30 % Monocytes % 7 % Eosinophils % 2 % Basophils % 1 % Neutrophils # 1.9 (1.3-7.7) k/uL Lymphocytes # 1.0 (1.0-4.8) k/uL Monocytes # 0.3 (0-1.0) k/uL Eosinophils # 0.1 (0-0.7) k/uL Basophils # 0.0 (0-0.2) k/uL D-Dimer 0.28 (<0.60) mg/L FEU Sodium (137-145) mmol/L Potassium (3.5-5.1) mmol/L Chloride (98-107) mmol/L Carbon Dioxide (22-30) mmol/L Anion Gap mmol/L BUN (9-20) mg/dL Creatinine (0.66-1.25) mg/dL Est GFR (CKD-EPI)AfAm (>60 ml/min/1.73 sqM) Est GFR (CKD-EPI)NonAf (>60 ml/min/1.73 sqM) Glucose (74-99) mg/dL Lactic Ac Sepsis Rflx Plasma Lactic Acid Ender (0.7-2.0) mmol/L Calcium (8.4-10.2) mg/dL Phosphorus (2.5-4.5) mg/dL Magnesium (1.6-2.3) mg/dL Total Bilirubin (0.2-1.3) mg/dL AST (17-59) U/L ALT (4-49) U/L Alkaline Phosphatase (38-126) U/L Troponin I (0.000-0.034) ng/mL Total Protein (6.3-8.2) g/dL Albumin (3.5-5.0) g/dL TSH (0.465-4.680) mIU/L Urine Color Yellow Urine Appearance Clear (Clear) Urine pH 7.5 (5.0-8.0) Ur Specific Anderson 1.025 (1.001-1.035) Urine Protein Trace H (Negative) Urine Glucose (UA) 4+ H (Negative) Urine Ketones Trace H (Negative) Urine Blood Negative (Negative) Urine Nitrite Negative (Negative) Urine Bilirubin Negative (Negative) Urine Urobilinogen 3.0 (<2.0) mg/dL Ur Leukocyte Esterase Negative (Negative) Urine Opiates Screen Not Detected (NotDetected) Ur Oxycodone Screen Not Detected (NotDetected) Urine Methadone Screen Not Detected (NotDetected) Ur Propoxyphene Screen Not Detected (NotDetected) Ur Barbiturates Screen Not Detected (NotDetected) U Tricyclic Antidepress Not Detected (NotDetected) Ur Phencyclidine Scrn Not Detected (NotDetected) Ur Amphetamines Screen Not Detected (NotDetected) U Methamphetamines Scrn Not Detected (NotDetected) U Benzodiazepines Scrn Not Detected (NotDetected) Urine Cocaine Screen Not Detected (NotDetected) U Marijuana (THC) Screen Detected H (NotDetected) Serum Alcohol mg/dL 04/21/23 04/21/23 04/21/23 Range/Units 12:54 12:54 12:54 WBC (3.8-10.6) k/uL RBC (4.30-5.90) m/uL Hgb (13.0-17.5) gm/dL Hct (39.0-53.0) % MCV (80.0-100.0) fL MCH (25.0-35.0) pg MCHC (31.0-37.0) g/dL RDW (11.5-15.5) % Plt Count (150-450) k/uL MPV Neutrophils % % Lymphocytes % % Monocytes % % Eosinophils % % Basophils % % Neutrophils # (1.3-7.7) k/uL Lymphocytes # (1.0-4.8) k/uL Monocytes # (0-1.0) k/uL Eosinophils # (0-0.7) k/uL Basophils # (0-0.2) k/uL D-Dimer (<0.60) mg/L FEU Sodium 135 L (137-145) mmol/L Potassium 4.2 (3.5-5.1) mmol/L Chloride 102 (98-107) mmol/L Carbon Dioxide 25 (22-30) mmol/L Anion Gap 8 mmol/L BUN 11 (9-20) mg/dL Creatinine 0.87 (0.66-1.25) mg/dL Est GFR (CKD-EPI)AfAm >90 (>60 ml/min/1.73 sqM) Est GFR (CKD-EPI)NonAf >90 (>60 ml/min/1.73 sqM) Glucose 192 H (74-99) mg/dL Lactic Ac Sepsis Rflx Plasma Lactic Acid Ender 2.6 H* (0.7-2.0) mmol/L Calcium 8.8 (8.4-10.2) mg/dL Phosphorus 1.6 L (2.5-4.5) mg/dL Magnesium 1.8 (1.6-2.3) mg/dL Total Bilirubin 1.0 (0.2-1.3) mg/dL AST 310 H (17-59) U/L ALT 420 H (4-49) U/L Alkaline Phosphatase 134 H (38-126) U/L Troponin I <0.012 (0.000-0.034) ng/mL Total Protein 7.0 (6.3-8.2) g/dL Albumin 4.2 (3.5-5.0) g/dL TSH (0.465-4.680) mIU/L Urine Color Urine Appearance (Clear) Urine pH (5.0-8.0) Ur Specific Anderson (1.001-1.035) Urine Protein (Negative) Urine Glucose (UA) (Negative) Urine Ketones (Negative) Urine Blood (Negative) Urine Nitrite (Negative) Urine Bilirubin (Negative) Urine Urobilinogen (<2.0) mg/dL Ur Leukocyte Esterase (Negative) Urine Opiates Screen (NotDetected) Ur Oxycodone Screen (NotDetected) Urine Methadone Screen (NotDetected) Ur Propoxyphene Screen (NotDetected) Ur Barbiturates Screen (NotDetected) U Tricyclic Antidepress (NotDetected) Ur Phencyclidine Scrn (NotDetected) Ur Amphetamines Screen (NotDetected) U Methamphetamines Scrn (NotDetected) U Benzodiazepines Scrn (NotDetected) Urine Cocaine Screen (NotDetected) U Marijuana (THC) Screen (NotDetected) Serum Alcohol <10 mg/dL 04/21/23 04/21/23 Range/Units 13:38 14:06 WBC (3.8-10.6) k/uL RBC (4.30-5.90) m/uL Hgb (13.0-17.5) gm/dL Hct (39.0-53.0) % MCV (80.0-100.0) fL MCH (25.0-35.0) pg MCHC (31.0-37.0) g/dL RDW (11.5-15.5) % Plt Count (150-450) k/uL MPV Neutrophils % % Lymphocytes % % Monocytes % % Eosinophils % % Basophils % % Neutrophils # (1.3-7.7) k/uL Lymphocytes # (1.0-4.8) k/uL Monocytes # (0-1.0) k/uL Eosinophils # (0-0.7) k/uL Basophils # (0-0.2) k/uL D-Dimer (<0.60) mg/L FEU Sodium (137-145) mmol/L Potassium (3.5-5.1) mmol/L Chloride (98-107) mmol/L Carbon Dioxide (22-30) mmol/L Anion Gap mmol/L BUN (9-20) mg/dL Creatinine (0.66-1.25) mg/dL Est GFR (CKD-EPI)AfAm (>60 ml/min/1.73 sqM) Est GFR (CKD-EPI)NonAf (>60 ml/min/1.73 sqM) Glucose (74-99) mg/dL Lactic Ac Sepsis Rflx Y Plasma Lactic Acid Ender (0.7-2.0) mmol/L Calcium (8.4-10.2) mg/dL Phosphorus (2.5-4.5) mg/dL Magnesium (1.6-2.3) mg/dL Total Bilirubin (0.2-1.3) mg/dL AST (17-59) U/L ALT (4-49) U/L Alkaline Phosphatase (38-126) U/L Troponin I (0.000-0.034) ng/mL Total Protein (6.3-8.2) g/dL Albumin (3.5-5.0) g/dL TSH 1.140 (0.465-4.680) mIU/L Urine Color Urine Appearance (Clear) Urine pH (5.0-8.0) Ur Specific Anderson (1.001-1.035) Urine Protein (Negative) Urine Glucose (UA) (Negative) Urine Ketones (Negative) Urine Blood (Negative) Urine Nitrite (Negative) Urine Bilirubin (Negative) Urine Urobilinogen (<2.0) mg/dL Ur Leukocyte Esterase (Negative) Urine Opiates Screen (NotDetected) Ur Oxycodone Screen (NotDetected) Urine Methadone Screen (NotDetected) Ur Propoxyphene Screen (NotDetected) Ur Barbiturates Screen (NotDetected) U Tricyclic Antidepress (NotDetected) Ur Phencyclidine Scrn (NotDetected) Ur Amphetamines Screen (NotDetected) U Methamphetamines Scrn (NotDetected) U Benzodiazepines Scrn (NotDetected) Urine Cocaine Screen (NotDetected) U Marijuana (THC) Screen (NotDetected) Serum Alcohol mg/dL - EKG Data -: EKG Interpreted by Me Disposition Clinical Impression: Dehydration, Dizziness, Tachycardia, Palpitations, Supraventricular tachycardia, Alcoholic hepatitis Disposition: HOME SELF-CARE Condition: Good Instructions (If sedation given, give patient instructions): Dehydration (ED), Dizziness (ED), Tachycardia (ED) Is patient prescribed a controlled substance at d/c from ED?: No Referrals: Lane Campos MD [Primary Care Provider] - 1-2 days Time of Disposition: 15:10
[2023-04-21 13:03] LABS: Basophils % (A) 1 %; Eosinophils # (A) 0.1 k/uL (0-0.7); Eosinophils % (A) 2 %; HCT 45.7 % (39.0-53.0); HGB 15.6 gm/dL (13.0-17.5); Lymphocytes % (A) 30 %; MCH 32.9 pg (25.0-35.0); MCHC 34.2 g/dL (31.0-37.0); MCV 96.2 fL (80.0-100.0); Mean Platelet Volume 7.1; Monocytes # (A) 0.3 k/uL (0-1.0); Monocytes % (A) 7 %; Neutrophils # (A) 1.9 k/uL (1.3-7.7); Neutrophils % (A) 56 %; Platelet Count 180 k/uL (150-450); RBC 4.75 m/uL (4.30-5.90); RDW 12.8 % (11.5-15.5); WBC 3.4 k/uL (3.8-10.6)
[2023-04-21 13:25] LABS: Appearance,Urine Clear (Clear); Bilirubin,Urine Negative (Negative); Blood,Urine Negative (Negative); Color,Urine Yellow; Glucose,Urine (UA) 4+ (Negative); Ketones,Urine Trace (Negative); Leukocyte Esterase,Urine Negative (Negative); Nitrite,Urine Negative (Negative); PH, Urine 7.5 (5.0-8.0); Protein,Urine Trace (Negative); Specific Gravity,Urine 1.025 (1.001-1.035)
[2023-04-21 13:39] LABS: ALT 420 U/L (4-49); AST 310 U/L (17-59); African American GFR (CKD) >90 (>60 ml/min/1.73 sqM); Albumin 4.2 g/dL (3.5-5.0); Alcohol <10 mg/dL; Alkaline Phosphatase 134 U/L (38-126); Anion Gap 8 mmol/L; Blood Urea Nitrogen 11 mg/dL (9-20); Calcium 8.8 mg/dL (8.4-10.2); Carbon Dioxide 25 mmol/L (22-30); Chloride 102 mmol/L (98-107); Glucose 192 mg/dL (74-99); Magnesium 1.8 mg/dL (1.6-2.3); Non-African American GFR(CKD) >90 (>60 ml/min/1.73 sqM); Phosphorus 1.6 mg/dL (2.5-4.5); Potassium 4.2 mmol/L (3.5-5.1); Sodium 135 mmol/L (137-145)
[2023-04-21 13:41] LABS: Amphetamine Screen,Urine Not Detected (NotDetected); Barbiturate Screen,Urine Not Detected (NotDetected); Benzodiazepines Screen,Urine Not Detected (NotDetected); Cocaine Screen,Urine Not Detected (NotDetected); Methadone Screen, Urine Not Detected (NotDetected); Opiate Screen,Urine Not Detected (NotDetected); Oxycodone Screen, Urine Not Detected (NotDetected); Phencyclidine Screen,Urine Not Detected (NotDetected); Tricyclic Antidepressant,Urine Not Detected (NotDetected); Urn Cannabinoid Scrn Detected (NotDetected)
[2023-04-21 15:47] VITALS: BP 138/88; PULSE 75; RESP 17; TEMP 98
== END 2023-04-21 15:52 | disposition home or self-care (01) ==
LOC: EC 11:59
DX: E86.0 Dehydration (principal); R42 Dizziness and giddiness; I47.1 Supraventricular tachycardia; K70.10 Alcoholic hepatitis without ascites; K21.9 Gastro-esophageal reflux disease without esophagitis; F41.9 Anxiety disorder, unspecified; F32.A Depression, unspecified; F12.90 Cannabis use, unspecified, uncomplicated; Z79.899 Other long term (current) drug therapy; Z87.891 Personal history of nicotine dependence
CPT/HCPCS: 36415; 93005; 85379; 80053; 83605; 83735; 84100; 84443; 84484; 85025; 81003; 80306; 99284; 96360; G0480; 80320

== ENCOUNTER → 2023-06-08 | Outpatient (CLI) | payer OTHER ==
--- NOTE | 2023-06-08 11:32 | CA ---
Exercise Stress Test Report Name: Wilfrido Austin Exam Date: 06/08/2023 09:55 Exam Location: [facility] Stress Ht (in): 65 Wt (lb): 188 BSA: 1.93 Ordering Phys: Roslyn Campos MD Referring Phys: ROSLYN CAMPOS,, Technologist: Bentley Brand Age: 32 Gender: M : 1990 Procedure CPT: Indications: R42 Dizziness ICD-10 Codes: Patient History: Medications: OMEPEROZOLE, DISUCLAMINE, ATORVASTATIN Meds past 24 hrs: Pretest Chest Pain: STRESS TEST Richard Protocol Exercise Duration (min:sec): 11:[address] Depressions (mm): Angina Score: Sandra Score: Resting HR (bpm): 70 Peak HR (bpm): 188 Resting BP (mmHg): 107 / 78 Peak BP (mmHg): 188 / 54 MPHR: 188 Target HR: 160 % MPHR: 100 METS: 12.1 Total Dose: Peak Dose: Atropine: Double Product: 53714 BP Response: Stress Termination: Reached target heart rate Stress Symptoms: NO SYMPTOMS Stress Summary: ECG ANALYSIS Resting ECG: Stress ECG: CONCLUSIONS Baseline EKG revealed a normal sinus rhythm without significant ST-T changes. Resting heart rate was 73 bpm and resting blood pressure was 107/78. Peak heart rate was 186 bpm and peak blood pressure was 188/54. There were no EKG changes to indicate ischemia. No angina. No arrhythmia. This is a negative stress test with excellent exercise capacity Dr. John Yancey MD (Electronically Signed) Final Date: 08 June 2023 11:31
== END | disposition home or self-care (01) ==
LOC: RADNMMAIN 08:45
PROVIDERS: ATTEND Family Medicine
DX: E78.5 Hyperlipidemia, unspecified (principal); R42 Dizziness and giddiness
CPT/HCPCS: 93017

== ENCOUNTER 2024-08-29 17:59 | Emergency (ER) | payer OTHER ==
[2024-08-29 18:16] VITALS: TEMP 98.8
--- NOTE | 2024-08-29 18:24 | ED ---
ENT HPI - General Source: patient Mode of arrival: ambulatory Limitations: no limitations - History of Present Illness MD complaint: tooth pain Onset/Timin -: days(s) Severity scale (1-10): 10 Consistency: constant <Arley Callahan - Last Filed: 08/29/24 18:23> <Octavio Sheehan - Last Filed: 08/29/24 19:00> - General Chief complaint: Dental/Oral Stated complaint: dental pain Time Seen by Provider: 08/29/24 18:15 - History of Present Illness Initial comments: Quick note: This is a 34-year-old male complaining of left wisdom tooth pain (10 out of 10) since last night. Patient states half of his wisdom tooth is missing and is waiting for his dental insurance to go through starting at the beginning of next month. Patient states he has been taking Motrin 800 and Tylenol for pain. (Arley Callahan) Patient is a 34-year-old male presents emergency department complaining of left posterior tooth pain. Patient has a history of a cracked tooth. States that it began hurting last night. Has not seen a dentist as he has no dental insurance. Denies any fevers or chills. Denies any difficulty breathing or swallowing. Has no other acute complaints at this time. Presents for possible dental infection. Was seen as a quick note. I evaluated patient when he was placed in a room. (Octavio Sheehan) - Related Data Home Medications Medication Instructions Recorded Confirmed Dicyclomine [Bentyl] 40 mg PO DAILY 11/17/15 04/21/23 Dicyclomine [Bentyl] 40 mg PO DAILY PRN 04/21/23 04/21/23 Omeprazole Magnesium [PriLOSEC OTC] 20 mg PO DAILY 04/21/23 04/21/23 Previous Rx's Medication Instructions Recorded Amoxic-Pot Clav 875-125Mg 1 tab PO Q12HR 7 Days #14 tab 08/29/24 [Augmentin 875-125] Allergies Allergy/AdvReac Type Severity Reaction Status Date / Time No Known Allergies Allergy Verified 07/07/24 12:59 Review of Systems ROS Other: All systems not noted in ROS Statement are negative. <Arley Callahan - Last Filed: 08/29/24 18:23> ROS Other: All systems not noted in ROS Statement are negative. <Octavio Sheehan - Last Filed: 08/29/24 19:00> ROS Statement: Those systems with pertinent positive or pertinent negative responses have been documented in the HPI. Review of Systems: CONST: Denies fever EYES: Denies blurry vision ENT: Endorses dental pain C/V: Denies Chest pain RESP: Denies shortness of breath GI: Denies abdominal pain : Denies dysuria SKIN: Denies rash. MSK: Denies joint pain. NEURO: Denies headache (Octavio Sheehan) Past Medical History Past Medical History: GERD/Reflux Additional Past Medical History / Comment(s): Back pain, IBS History of Any Multi-Drug Resistant Organisms: None Reported Past Surgical History: No Surgical Hx Reported Past Psychological History: Anxiety, Depression Smoking Status: Former smoker Past Alcohol Use History: Heavy Past Drug Use History: Marijuana <Arley Callahan - Last Filed: 08/29/24 18:23> General Exam Limitations: no limitations <Arley Callahan - Last Filed: 08/29/24 18:23> <Octavio Sheehan - Last Filed: 08/29/24 19:00> - General Exam Comments Initial Comments: Visual Physical Exam Vital signs reviewed General: Well-appearing, nontoxic, no acute distress. Head: Normocephalic, atraumatic Eyes: PERRLA, EOMI ENT: Airway patent Chest: Nonlabored breathing Skin: No visual rash, normal skin tone Neuro: Alert and oriented 3 Musculoskeletal: No gross abnormalities (Arley Callahan) General: Appears in no acute distress. HEAD: Normal with no signs of head trauma. EYES: EOMI. ENT: Hearing grossly intact. Cracked tooth at tooth #16. This is chronic for the patient. Mild tenderness to palpation at this site. No stridor. No intraoral edema. No tongue edema. No evidence of Duong's angina. RESPIRATORY: No respiratory distress. C/V: Regular rate and rhythm. ABD: Abdomen is nondistended. EXT: No obvious deformity. SKIN: No rashes or lesions observed on exposed skin. NEURO: Alert and oriented. (Octavio Sheehan) Course Vital Signs 08/29/24 18:13 Temperature 98.8 F Pulse Rate 66 Respiratory 18 Rate Blood Pressure 152/99 O2 Sat by Pulse 99 Oximetry Medical Decision Making <Arley Callahan - Last Filed: 08/29/24 18:23> <Octavio Sheehan - Last Filed: 08/29/24 19:00> - Medical Decision Making I completed the quick note portion of this chart signed HARRY Pérez (Arley Callahan) Was pt. sent in by a medical professional or institution ([facility] [employer], TILE SETTER SUPERVISOR, urgent care, hospital, or shelter...) When possible be specific @ -No Did you speak to anyone other than the patient for history (EMS, parent, family, police, friend...)? What history was obtained from this source @ -No Did you review nursing and triage notes (agree or disagree)? Why? @ -I reviewed and agree with nursing and triage notes Were old charts reviewed (outside hosp., previous admission, EMS record, old EKG, old radiological studies, urgent care reports/EKG's, shelter records)? Report findings @ -No old charts were reviewed Differential Diagnosis (chest pain, altered mental status, abdominal pain women, abdominal pain men, vaginal bleeding, weakness, fever, dyspnea, syncope, headache, dizziness, GI bleed, back pain, seizure, CVA, palpatations, mental health, musculoskeletal)? @ -Toothache, dental infection. This list is not all inclusive. EKG interpreted by me (3pts min.). @ -None done X-rays interpreted by me (1pt min.). @ -None done CT interpreted by me (1pt min.). @ -None done U/S interpreted by me (1pt. min.). @ -None done What testing was considered but not performed or refused? (CT, X-rays, U/S, labs)? Why? @ -None What meds were considered but not given or refused? Why? @ -None Did you discuss the management of the patient with other professionals (professionals i.e. [employer], TILE SETTER SUPERVISOR, lab, RT, psych nurse, social sciences lecturer, motion graphics artist, teacher, chief safety officer, catalytic case operator)? Give summary @ -No Was smoking cessation discussed for >3mins.? @ -No Was critical care preformed (if so, how long)? @ -No Were there social determinants of health that impacted care today? How? (Homelessness, low income, unemployed, alcoholism, drug addiction, transportation, low edu. Level, literacy, decrease access to med. care, usp, rehab)? @ -No Was there de-escalation of care discussed even if they declined (Discuss DNR or withdrawal of care, Hospice)? DNR status @ -No What co-morbidities impacted this encounter? (DM, HTN, Smoking, COPD, CAD, Cancer, CVA, ARF, Chemo, Hep., AIDS, mental health diagnosis, sleep apnea, morbid obesity)? @ -None Was patient admitted / discharged? Hospital course, mention meds given and route, prescriptions, significant lab abnormalities, going to OR and other pertinent info. @ -Based on the patient's presentation and physical exam, presents for dental pain, possible tooth infection. Has a history of a chronic cracked tooth. Seems to be tooth #16. Vitals are within acceptable limits. No evidence of Duong's angina. I discussed with the patient will be given a dose of Decadron, antibiotics, as well as a starter pack of Tylenol 3. Patient was in agreement this plan. Vital signs are within acceptable limits. Directed him to follow-up with a dentist. He will be given referral for oral surgery. I will provide the patient with a prescription for Augmentin. I instructed the patient to follow up with their PCP in the next 1-3 days. I provided contact information for follow up with oral surgeon. I explained that the patient should return to the emergency department if they experience any worsening symptoms. Strict return precautions were discussed with the patient. The patient expressed understanding of these instructions. I answered all questions that the patient had. The patient was discharged home in good condition with their prescriptions and follow up information. Undiagnosed new problem with uncertain prognosis? @ -No Drug Therapy requiring intensive monitoring for toxicity (Heparin, Nitro, Insulin, Cardizem)? @ -No Were any procedures done? @ -No Diagnosis/symptom? @ -Dental pain Acute, or Chronic, or Acute on Chronic? @ -Acute on chronic Uncomplicated (without systemic symptoms) or Complicated (systemic symptoms)? @ -Uncomplicated Side effects of treatment? @ -No Exacerbation, Progression, or Severe Exacerbation? @ -No Poses a threat to life or bodily function? How? (Chest pain, USA, PA, pneumonia, PE, COPD, DKA, ARF, appy, cholecystitis, CVA, Diverticulitis, Homicidal, Suicidal, threat to staff... and all critical care pts) @ -Unlikely (Octavio Sheehan) Disposition <Arley Callahan - Last Filed: 08/29/24 18:23> Is patient prescribed a controlled substance at d/c from ED?: No Time of Disposition: 18:39 <Octavio Sheehan - Last Filed: 08/29/24 19:00> Clinical Impression: Pain, dental Disposition: HOME SELF-CARE Condition: Good Instructions (If sedation given, give patient instructions): Toothache (ED) Prescriptions: Amoxic-Pot Clav 875-125Mg [Augmentin 875-125] 1 tab PO Q12HR 7 Days #14 tab Referrals: Lane Campos MD [Primary Care Provider] - 1-2 days Bernardo Ardon DDS [STAFF PHYSICIAN] - 1-2 days
[2024-08-29] MEDS: AMOXIC-POT CLAV 875-125MG 1 EACH TAB PO STA (18:51)
[2024-08-29] MEDS: dexAMETHasone 4 MG TAB PO STA (18:52)
[2024-08-29] MEDS: ACET/COD 300 MG/30 MG STARTER PACK 6 TAB BTL PO STA (18:53)
[2024-08-29 18:59] VITALS: BP 141/95; PULSE 70; RESP 16
== END 2024-08-29 18:59 | disposition home or self-care (01) ==
LOC: EC 17:59
DX: Z87.891 Personal history of nicotine dependence (principal)
CPT/HCPCS: 99282

== ENCOUNTER 2025-01-08 16:29 | Emergency (ER) | payer OTHER ==
--- NOTE | 2025-01-08 16:39 | ED ---
Skin/Abscess/FB HPI - General Source: patient Mode of arrival: ambulatory Limitations: no limitations <Ethan West - Last Filed: 01/08/25 17:32> <Kevin Pritchett - Last Filed: 01/08/25 17:53> - General Chief complaint: Skin/Abscess/Foreign Body Stated complaint: ruptured cyst - History of Present Illness Initial comments: Patient is a 34-year-old male with history of GERD and IBS presented to the emergency department with a 2 mm cyst in the intergluteal cleft has been draining for the past few days. Patient reported that he had this cyst since when he was a teenager and has had multiple infections of this cyst in the past. 3 years ago the cyst was also infected and he had to undergo an I&D. This time he started feeling pain last and the cyst ruptured and has been draining fluid since Wednesday morning. Patient has been taking amoxicillin 500 mg for the past 5 days with no improvement. Patient does report that since cyst ruptured, he has been feeling a lot better. Patient denies fever, chills, chest pain, shortness of breath, nausea, vomiting, belly pain, diarrhea or constipation. (Ethan West) - Related Data Home Medications Medication Instructions Recorded Confirmed Dicyclomine [Bentyl] 40 mg PO DAILY 11/17/15 04/21/23 Dicyclomine [Bentyl] 40 mg PO DAILY PRN 04/21/23 04/21/23 Omeprazole Magnesium [PriLOSEC OTC] 20 mg PO DAILY 04/21/23 04/21/23 Previous Rx's Medication Instructions Recorded Amoxic-Pot Clav 875-125Mg 1 tab PO Q12HR 7 Days #14 tab 08/29/24 [Augmentin 875-125] Clindamycin [Cleocin] 450 mg PO Q6H 7 Days #28 cap 01/08/25 Clindamycin [Cleocin] 450 mg PO Q6H 7 Days #28 cap 01/08/25 Allergies Allergy/AdvReac Type Severity Reaction Status Date / Time No Known Allergies Allergy Verified 01/08/25 16:35 Review of Systems ROS Other: All systems not noted in ROS Statement are negative. Constitutional: Denies: fever, chills Respiratory: Denies: cough, dyspnea Cardiovascular: Denies: chest pain, palpitations Endocrine: Denies: fatigue Gastrointestinal: Denies: abdominal pain, nausea, vomiting Genitourinary: Denies: urgency, dysuria Musculoskeletal: Denies: back pain Skin: Reports: change in color. Denies: rash, lesions, pruritus <Ethan West - Last Filed: 01/08/25 17:32> ROS Other: All systems not noted in ROS Statement are negative. <Kevin Pritchett - Last Filed: 01/08/25 17:53> ROS Statement: Those systems with pertinent positive or pertinent negative responses have been documented in the HPI. Past Medical History Past Medical History: GERD/Reflux Additional Past Medical History / Comment(s): Back pain, IBS History of Any Multi-Drug Resistant Organisms: None Reported Past Surgical History: No Surgical Hx Reported Past Psychological History: Anxiety, Depression Smoking Status: Former smoker Past Alcohol Use History: Occasional Past Drug Use History: Marijuana <BrettEthan - Last Filed: 01/08/25 17:32> General Exam Limitations: no limitations <Ethan West - Last Filed: 01/08/25 17:32> - General Exam Comments Initial Comments: GENERAL: This is a 34-year-old in no apparent distress at the time of examination. Pleasant and cooperative. HEENT: Head is atraumatic, normocephalic. RESPIRATORY: Clear to auscultation bilaterally. No wheezing, rales, rhonchi, stridor, crackles. CARDIOVASCULAR: Regular rate and rhythm. S1 and S2 noted. No systolic or diastolic murmur auscultated. No JVD noted. No S3 or S4 noted. GASTROINTESTINAL: No distention noted. Abdomen soft and round. Normal active bowel sounds auscultated x 4 quadrants. No pain or tenderness noted upon pal pation. INTEGUMENTARY: 2 mm cyst noted in the intergluteal cleft draining red-colored fluid. No significant swelling, discoloration, erythema noted. Area surrounding the cyst slightly tender to palpation. EXTREMITIES: 2+ peripheral pulses. No evidence of peripheral edema. No calf tenderness noted. NEUROLOGIC: Cranial nerves II-XII intact. PSYCHIATRIC: Awake, alert, and oriented X 3. Appropriate affect. Intact judgement and insight. (Ethan West) Course Vital Signs 01/08/25 16:31 Temperature 98.3 F Pulse Rate 82 Respiratory 16 Rate Blood Pressure 170/101 O2 Sat by Pulse 99 Oximetry Medical Decision Making <Ethan West - Last Filed: 01/08/25 17:32> <Kevin Pritchett - Last Filed: 01/08/25 17:53> - Medical Decision Making Was pt. sent in by a medical professional or institution ([facility], [employer], urgent care, hospital, or detention...) When possible be specific @ -Patient was sent in by urgent care Did you speak to anyone other than the patient for history (EMS, parent, family, police, friend...)? What history was obtained from this source @ -Spoke with the patient's family Did you review nursing and triage notes (agree or disagree)? Why? @ -Reviewed and agree with nursing and triage notes Were old charts reviewed (outside hosp., previous admission, EMS record, old EKG, old radiological studies, urgent care reports/EKG's, detention records)? Report findings @ -No old charts reviewed. Differential Diagnosis? @ -Pilonidal cyst, abscess, cellulitis EKG interpreted by me (3pts min.). @ -No ordered X-rays interpreted by me (1pt min.). @ -Not ordered CT interpreted by me (1pt min.). @ -Not ordered U/S interpreted by me (1pt. min.). @ -No ordered What testing was considered but not performed or refused? (CT, X-rays, U/S, labs)? Why? @ -CT was considered however given patient's stable vital signs and cyst that has already ruptured, diagnostic value of a CT scan would be low What meds were considered but not given or refused? Why? @ -None Did you discuss the management of the patient with other professionals (professionals i.e. [employer] C[facility]vas, [employer]IMER CHARGING TOOL SETTER, lab, RT, psych nurse, social work faculty member, undercover cop, teacher, promotions officer, spring encaser)? Give summary @ -Discussed with attending physician Was smoking cessation discussed for >3mins.? @ -No Was critical care preformed (if so, how long)? @ -No Were there social determinants of health that impacted care today? How? (Homelessness, low income, unemployed, alcoholism, drug addiction, transportation, low edu. Level, literacy, decrease access to med. care, [facility], rehab)? @ -No Was there de-escalation of care discussed even if they declined (Discuss DNR or withdrawal of care, Hospice)? DNR status @ -No What co-morbidities impacted this encounter? (DM, HTN, Smoking, COPD, CAD, Cancer, CVA, ARF, Chemo, Hep., AIDS, mental health diagnosis, sleep apnea, morbid obesity)? @ -IBS, GERD Was patient admitted / discharged? Hospital course, mention meds given and route, prescriptions, significant lab abnormalities, going to OR and other pertinent info. @ -Patient will be discharged with clindamycin to take for the next 7 days. Recommended patient to follow-up with a surgeon to discuss treatment for recurrent pilonidal cyst infection. Undiagnosed new problem with uncertain prognosis? @ -No Drug Therapy requiring intensive monitoring for toxicity (Heparin, Nitro, Insulin, Cardizem)? @ -No Were any procedures done? @ -No Diagnosis/symptom? @ -Infected pilonidal cyst Acute, or Chronic, or Acute on Chronic? @ -Acute Uncomplicated (without systemic symptoms) or Complicated (systemic symptoms)? @ -Uncomplicated Side effects of treatment? @ -No Exacerbation, Progression, or Severe Exacerbation? @ -No exacerbation Poses a threat to life or bodily function? How? (Chest pain, [place], [place], pneumonia, PE, COPD, DKA, ARF, appy, cholecystitis, CVA, Diverticulitis, Homicidal, Suicidal, threat to staff... and all critical care pts) @ -No (Ethan West) I personally saw the patient and performed the critical portion of the service. I discussed the patient care with the resident I directed management, care planning and final disposition of the patient. This includes, but not limited to, review of all lab work, radiological studies, EKG's, consultations, vital signs, and nursing notes. EKG interpreted by me (3pts min.) @ [as above] X-Rays interpreted by me (1 pt min.) @ [none] CT interpreted by me ( 1pt min.) @ [none] U/S interpreted by me (1 pt min.) @ [none] Critical care time of [0] minutes excluding separately billable procedures was spent in conjunction with critical care activities provided by the Resident and Attending simultaneously. I was present during [no procedures] for all critical portions of the procedure and as immediately available to furnish service during the entire procedure. (Kevin Pritchett) Disposition Is patient prescribed a controlled substance at d/c from ED?: No Time of Disposition: 17:20 <Ethan West - Last Filed: 01/08/25 17:32> <Kevin Pritchett - Last Filed: 01/08/25 17:53> Clinical Impression: Infected pilonidal cyst Narrative: Patient will be discharged home with clindamycin. Recommended patient to follow-up with general surgery. (Ethan West) Disposition: HOME SELF-CARE Condition: Stable Instructions (If sedation given, give patient instructions): Pilonidal Cyst (ED) Prescriptions: Clindamycin [Cleocin] 450 mg PO Q6H 7 Days #28 cap Clindamycin [Cleocin] 450 mg PO Q6H 7 Days #28 cap Referrals: Lane Campos MD [Primary Care Provider] - 1-2 days
[2025-01-08 18:00] VITALS: BP 168/86; PULSE 80; RESP 20; TEMP 98
== END 2025-01-08 18:00 | disposition home or self-care (01) ==
LOC: EC 16:29
DX: L05.91 Pilonidal cyst without abscess (principal); Z87.891 Personal history of nicotine dependence
CPT/HCPCS: 99283

== ENCOUNTER 2025-04-10 12:56 | Emergency (ER) | payer OTHER ==
[2025-04-10 13:01] VITALS: RESP 18
--- NOTE | 2025-04-10 13:46 | ED ---
General Adult HPI - General Chief complaint: Skin/Abscess/Foreign Body Stated complaint: Sore on back Time Seen by Provider: 04/10/25 13:04 Source: patient, RN notes reviewed Mode of arrival: ambulatory Limitations: no limitations - History of Present Illness Initial comments: 34-year-old male presents to the emergency department for intergluteal cyst. Patient notes that he has had this for multiple years. He notes that it sometimes gets infected. He reports that over the past few days it has become more painful than usual. He states that he has had it lanced in the past. He denies any fever, chills. Denies any drainage from the area. - Related Data Home Medications Medication Instructions Recorded Confirmed Dicyclomine [Bentyl] 40 mg PO DAILY 11/17/15 04/21/23 Dicyclomine [Bentyl] 40 mg PO DAILY PRN 04/21/23 04/21/23 Omeprazole Magnesium [PriLOSEC OTC] 20 mg PO DAILY 04/21/23 04/21/23 Previous Rx's Medication Instructions Recorded Amoxic-Pot Clav 875-125Mg 1 tab PO Q12HR 7 Days #14 tab 08/29/24 [Augmentin 875-125] Clindamycin [Cleocin] 450 mg PO Q6H 7 Days #28 cap 01/08/25 Clindamycin [Cleocin] 450 mg PO Q6H 7 Days #28 cap 01/08/25 Cephalexin [Keflex] 500 mg PO Q6HR #28 cap 04/10/25 Allergies Allergy/AdvReac Type Severity Reaction Status Date / Time No Known Allergies Allergy Verified 04/10/25 13:01 Review of Systems ROS Statement: Those systems with pertinent positive or pertinent negative responses have been documented in the HPI. ROS Other: All systems not noted in ROS Statement are negative. Past Medical History Past Medical History: GERD/Reflux Additional Past Medical History / Comment(s): Back pain, IBS History of Any Multi-Drug Resistant Organisms: None Reported Past Surgical History: No Surgical Hx Reported Past Psychological History: Anxiety, Depression Smoking Status: Former smoker Past Alcohol Use History: Occasional Past Drug Use History: Marijuana General Exam Limitations: no limitations General appearance: alert, in no apparent distress Head exam: Present: atraumatic, normocephalic, normal inspection Respiratory exam: Present: normal lung sounds bilaterally. Absent: respiratory distress, wheezes, rales, rhonchi, stridor Cardiovascular Exam: Present: regular rate, normal rhythm, normal heart sounds. Absent: systolic murmur, diastolic murmur, rubs, gallop, clicks Extremities exam: Present: normal inspection, full ROM, normal capillary refill. Absent: tenderness, pedal edema, joint swelling, calf tenderness Neurological exam: Present: alert, oriented X3 Psychiatric exam: Present: normal affect, normal mood Skin exam: Present: warm, dry, intact, erythema (Erythematous indurated area at the top of the gluteal cleft). Absent: normal color, rash Course Vital Signs 04/10/25 04/10/25 12:59 13:57 Temperature 97.9 F 98.2 F Pulse Rate 90 65 Respiratory 18 18 Rate Blood Pressure 150/83 119/86 O2 Sat by Pulse 97 98 Oximetry Medical Decision Making - Medical Decision Making Was pt. sent in by a medical professional or institution (, PA, OFFICE WORKER, urgent care, hospital, or alf...) When possible be specific @ -No Did you speak to anyone other than the patient for history (EMS, parent, family, police, friend...)? What history was obtained from this source @ -No Did you review nursing and triage notes (agree or disagree)? Why? @ -I reviewed and agree with nursing and triage notes Were old charts reviewed (outside hosp., previous admission, EMS record, old EKG, old radiological studies, urgent care reports/EKG's, alf records)? Report findings @ -No old charts were reviewed Differential Diagnosis (chest pain, altered mental status, abdominal pain women, abdominal pain men, vaginal bleeding, weakness, fever, dyspnea, syncope, headache, dizziness, GI bleed, back pain, seizure, CVA, palpatations, mental health, musculoskeletal)? @ -Abscess, cellulitis, this list is not all inclusive EKG interpreted by me (3pts min.). @ -None X-rays interpreted by me (1pt min.). @ -None done CT interpreted by me (1pt min.). @ -None done U/S interpreted by me (1pt. min.). @ -None done What testing was considered but not performed or refused? (CT, X-rays, U/S, labs)? Why? @ -None What meds were considered but not given or refused? Why? @ -None Did you discuss the management of the patient with other professionals (professionals i.e. DrPat, PA, OFFICE WORKER, lab, RT, psych nurse, geriatric social work professor, diesel engine erector, teacher, recruitment officer, disease case manager rn)? Give summary @ -No Was smoking cessation discussed for >3mins.? @ -No Was critical care preformed (if so, how long)? @ -No Were there social determinants of health that impacted care today? How? (Homelessness, low income, unemployed, alcoholism, drug addiction, transportation, low edu. Level, literacy, decrease access to med. care, retirement, rehab)? @ -No Was there de-escalation of care discussed even if they declined (Discuss DNR or withdrawal of care, Hospice)? DNR status @ -No What co-morbidities impacted this encounter? (DM, HTN, Smoking, COPD, CAD, Can cer, CVA, ARF, Chemo, Hep., AIDS, mental health diagnosis, sleep apnea, morbid obesity)? @ -None Was patient admitted / discharged? Hospital course, mention meds given and route, prescriptions, significant lab abnormalities, going to OR and other pertinent info. @ -Discharge. Patient presented the emergency department for intergluteal cleft cyst. On examination, there is a indurated erythematous area at the top of the gluteal cleft. Patient will be started on antibiotics. This does not seem to be drainable at this time. He is understanding agreeable to plan. Patient stable at time of discharge. Case discussed with Dr. Lacey. Undiagnosed new problem with uncertain prognosis? @ -No Drug Therapy requiring intensive monitoring for toxicity (Heparin, Nitro, Insulin, Cardizem)? @ -No Were any procedures done? @ -No Diagnosis/symptom? @ -Infected cyst Acute, or Chronic, or Acute on Chronic? @ -Acute Uncomplicated (without systemic symptoms) or Complicated (systemic symptoms)? @ -Acute uncomplicated Side effects of treatment? @ -No Exacerbation, Progression, or Severe Exacerbation? @ -No Poses a threat to life or bodily function? How? (Chest pain, [place], [place], pneumonia, PE, COPD, DKA, ARF, appy, cholecystitis, CVA, Diverticulitis, Homicidal, Suicidal, threat to staff... and all critical care pts) @ -No Disposition Clinical Impression: Infected cyst of skin Disposition: HOME SELF-CARE Condition: Stable Additional Instructions: Please follow-up with your doctor. Return to the emergency department for new or worsening symptoms. Prescriptions: Cephalexin [Keflex] 500 mg PO Q6HR #28 cap Is patient prescribed a controlled substance at d/c from ED?: No Referrals: Lane Campos MD [Primary Care Provider] - 1-2 days
[2025-04-10 13:59] VITALS: BP 119/86; PULSE 65; TEMP 98.2
== END 2025-04-10 13:59 | disposition home or self-care (01) ==
LOC: EC 12:56
DX: L72.9 Follicular cyst of the skin and subcutaneous tissue, unspecified (principal); Z87.891 Personal history of nicotine dependence
CPT/HCPCS: 99282